=== PATIENT | female | born 1960 | race Caucasian/White ===

== ENCOUNTER → 2019-02-25 10:17 | Outpatient (CLI) | payer BC, SELFPAY ==
[2013-08-06 08:47] VITALS: BMI 47.0
[2019-02-25 10:41] LABS: Hemoglobin 9.2 g/dL (12.0-15.0); Mean Corp Hgb Conc 28.8 g/dL (32-36); Mean Corpuscular Hgb 26.1 pg (27.0-32.0); Mean Corpuscular Volume 90.7 fL (81-99); Mean Platelet Vol. 9.4 fl (6.2-12.0); Platelet Count 519 K/mm3 (150-450); RBC Distribution Width CV 17.7 % (11.6-14.6); RBC Distribution Width SD 56.1 fl (35.1-43.9); Red Blood Count 3.53 M/mm3 (4.2-5.4); White Blood Count 5.5 K/mm3 (4.4-11.0)
[2019-02-25 11:16] LABS: Iron 21 ug/dL (50-170)
== END ==
LOC: LAB.FUTURE 10:21 → LAB 10:24
PROVIDERS: Family Provider Preventive Medicine Occupational Medicine; PCP Preventive Medicine Occupational Medicine; Referring Provider Preventive Medicine Occupational Medicine; Visit Provider Preventive Medicine Occupational Medicine
DX: D50.9 Iron deficiency anemia, unspecified (principal)
CPT/HCPCS: 36415; 83540; 85027

== ENCOUNTER → 2019-04-10 15:37 | Outpatient (CLI) | payer BC, SELFPAY ==
[2019-04-07 14:28] VITALS: BMI 37.5
--- NOTE | 2019-04-10 15:37 | CT_ITS ---
STUDY: CT CHEST WITH CONTRAST REASON FOR EXAM: Female, 59 years old. STAGING RECTAL CA RADIATION DOSAGE (If Supplied By Facility): CTDIvol = ( 21.57 ) mGy, DLP = ( 1467.20 ) mGycm TECHNIQUE: Transaxial imaging was performed following intravenous administration of IV 100mL Isovue-300. Multiplanar coronal and sagittal images were reformatted. Individualized dose optimization techniques were used for this CT. COMPARISON: None. FINDINGS: There are multiple irregular, spiculated noncalcified nodules and multiple pulmonary lobes. For instance, in the right upper lobe, there is a 2.0 x 2.5 cm nodule on image 29. In the medial right lower lobe, there is a 3.2 x 3.1 cm nodule/mass on image 71. There is also a 1.6 x 2.0 cm nodule in the lateral left lower lobe on image 72. No pleural effusion or mass. Normal heart and pericardium. There are calcifications of the coronary arteries. Mildly enlarged mediastinal lymph nodes including station 4 and Station 7 measuring up to 1.2 cm in short axis (station 7). Right hilar adenopathy on image 51 measures 1.3 x 1.5 cm. There are mildly enlarged lymph nodes of the left axilla with rounded morphology in short axis measuring up to 10 mm (image 25). Normal enhanced pulmonary arteries. There is atherosclerotic calcification of the aortic arch with tortuosity and elongation of the aortic arch and descending thoracic aorta. No lytic or sclerotic bone lesion demonstrated. Upper abdomen described on abdomen/pelvis CT report. CT/Chest WITH Contrast IMPRESSION: 1. Multiple pulmonary noncalcified nodules and right hilar/mediastinal adenopathy worrisome for metastasis. No comparison study available. 2. Mildly prominent left axillary lymph nodes measure up to 10 mm in short axis. Electronically Signed: Leighton Fuentes MD ([place]) at 9:20 EST , Service support ,
--- NOTE | 2019-04-10 15:52 | CT_ITS ---
STUDY: CT ABDOMEN WITH CONTRAST REASON FOR EXAM: Female, 59 years old. STAGING RECTAL CA RADIATION DOSAGE (If Supplied By Facility): CTDIvol = ( 21.57 ) mGy, DLP = ( 1467.20 ) mGycm TECHNIQUE: Transaxial images were obtained post I.V. administration of IV 100mL Isovue-300, and with oral contrast. Sagittal and coronal images were reconstructed. Individualized dose optimization techniques were used for this CT. COMPARISON: Prior comparison studies are not available for review at this time. FINDINGS: Lung bases described on chest CT. Hypodense mass of the left hepatic lobe measures 6.0 x 5.6 cm. Normal gallbladder and extrahepatic biliary system. Normal spleen. Normal pancreas. There is a 1.4 cm intermediate density nodule of the left adrenal gland. The right adrenal gland is normal. Normal right kidney. Normal left kidney. Normal visualized stomach. Normal visualized small intestine. Normal visualized colon. The appendix is visualized and appears normal. There is diffuse atherosclerotic calcification of the abdominal aorta, without a demonstrated aneurysm. Normal inferior vena cava. Normal retroperitoneum. Anterior abdominal wall fat-containing hernia with mild induration of the contain fat but no focal fluid collection. There are diffuse degenerative changes of the visualized lumbar spine. Degenerative anterolisthesis of L4-L5 due to facet arthropathy. CT/Abdomen WITH IV Contrast IMPRESSION: 1. Hypodense mass of the left hepatic lobe is NOT compatible with a simple cyst. Additional evaluation with hepatic protocol MRI and/or PET scan suggested. 2. 1.4 cm nodule of the left adrenal gland. No comparison studies are available. Benign (lipid poor adenoma) and malignant/metastatic causes are possible. 3. Periumbilical fat-containing hernia with mild hernia sac inflammation but no focal fluid collection. Electronically Signed: Leighton Fuentes MD ([place]) at 9:50 EST , Service support ,
== END ==
PROVIDERS: PCP Preventive Medicine Occupational Medicine; Referring Provider Internal Medicine Medical Oncology; Visit Provider Internal Medicine Medical Oncology
DX: C20 Malignant neoplasm of rectum (principal)
CPT/HCPCS: 71260; 74160; Q9967

== ENCOUNTER → 2019-04-12 07:46 | Outpatient (CLI) | payer BC, SELFPAY ==
[2019-04-07 14:28] VITALS: BMI 37.5
--- NOTE | 2019-04-12 07:47 | MRI_ITS ---
MRI OF THE RECTUM/PELVIS WITHOUT AND WITH CONTRAST CLINICAL INDICATION: RECTAL CA -- new dx , staging, pelvic pain, no tx or surgery ADDITIONAL CLINICAL HISTORY:? ??None. ENDOSCOPIC ULTRASOUND:? ?None reported. COMPARISON: CT abdomen 04/10/2019, CT chest 04/10/2019 CONTRAST: The quantity and type of administered IV contrast is not reported in the technologist notes on PACS. Correlate with technologist notes within the permanent medical record. MAGNET:? ?? TECHNIQUE: Multisequence multiplanar MRI of the pelvis focused on the rectum, including cone-down imaging in the sagittal, coronal, and axial planes aligned to the rectum. IMAGE QUALITY: Adequate. FINDINGS:? TUMOR LOCATION/CHARACTERISTICS The apical most portion of the lesion lies approximately 9.8 cm above the top of the anorectal angle. The inferior most portion of the lesion lies approximately 3.7 cm above the anorectal angle. Distance of the lowest extent of tumor: From anal verge:? 7.6? ?cm? From top of anal sphincter:? 4.2? ?cm? Tumor at or below puborectalis sling:? ??No. Intersphincteric fat: Preserved Tumor Circumferential extent: The tumor extends from the 1:00 position, clockwise to the 11:00 position. Type: Semi-annular Craniocaudal extent:?The largest bulk of the tumor is centered approximately 5.2 cm above the anorectal angle. The tumor extends along the left rectal sidewall between the 12:00 and 6:00 positions up to a level 9.8 cm above the top of anal rectal angle. The tumor involves the middle 3rd and distal 3rd of the rectum. Mucinous Subtype:? There is no significant visible mucinous content EXTRAMURAL DEPTH OF INVASION /T STAGING TUMORS: Extramural depth of invasion:?0 ?mm. Noted below, there is tumor spiculation extrinsic to the wall in the proximal portion of the tumor. T Stage:? ??T3c There is full-thickness involvement of the rectal wall with muscularis involvement in the lower portion of the tumor between the 9:00 and 11:00 positions, and in the superior portion of the tumor at the 3 to 5:00 position. There is also extension of the tumor into the muscularis in the lower portion of the tumor, between the 4:00 and 6:00 positions. Pyle images are saved to the PACS archive. MESORECTAL FASCIA (MRF) AND EXTRAMURAL DEPTH OF INVASION There is spiculation surrounding the margins of the rectal wall, centered on series 8, image 11. Pyle images saved to the PACS archive. The shortest distance from the margin of spiculation to the mesorectal fascia is 2.4 cm. There is a lobular soft tissue density extending outward from the 9:00 position of the rectum, series 8 image 12, subjacent to the area of rectal wall tumor spiculation. This extends about 15 mm from the muscularis propria into the perirectal fat and may represent invasion of a blood vessel, or a fingerlike projection of tumor. Based on the distance of extension from the rectal wall, displaces the malignancy at T3c. EXTRAMURAL VASCULAR INVASION:? ??None definitively visualized. SUSPICIOUS NODES (irregular border, mixed signal intensity, ? 5?8 mm) :? Mesorectal:? ??Posterior perirectal lymph nodes with suspicious features, measuring 11 mm, 5.7 mm, and 7.4 mm Extramesorectal:? ??None. SWATI node station:? ??None. DISTANT METASTASES:? ??No visualized distal metastases. BONES:? ??No apparent lesions. ADDITIONAL FINDINGS:? ?? Body wall soft tissues exhibit no acute process. Osseous structures exhibit no acute process. There is multilevel lumbar spondylosis contributing to spinal canal and foraminal stenosis at L4-L5, with mild grade 1 spondylolisthesis. Evaluated portions of small bowel are normal. Unremarkable vasculature. MRI/Pelvis W/WO Contrast IMPRESSION: Malignancy associated with the mid and distal thirds of the rectum. Multiple Pyle images are saved to the PACs archive for reference. The component within the distal 3rd of the rectum is larger. It is contiguous with the portion in the middle 3rd of the rectum along the lateral rectal wall. There is a single fingerlike projection of apparent solid tumor projecting from the right lateral wall, proximal portion of the tumor. There is evidence of multifocal extension into the muscularis. There is tumor spiculation associated with the proximal portion of the tumor. MRI rectal cancer T stage:? ??T3C (secondary to the presence of tumor spiculation along the margins of the rectum in the superiormost portion of the mass, and a 15 mm long fingerlike projection from the rectal wall). Maximal EMD of invasion:? ?Spiculation extends outward from the wall by approximately 4 mm. Fingerlike projection extends about 15 mm from the rectal wall. 3 suspicious mesorectal lymph nodes. N1 Electronically Signed: Constantino Merino MD at 12:11 EST Tel , Service support ,
== END ==
PROVIDERS: PCP Preventive Medicine Occupational Medicine; Referring Provider Internal Medicine Medical Oncology; Visit Provider Internal Medicine Medical Oncology
DX: C20 Malignant neoplasm of rectum (principal)
CPT/HCPCS: 72197; A9575

== ENCOUNTER → 2019-04-14 15:41 | Outpatient (CLI) | payer BC, SELFPAY ==
[2019-04-07 14:28] VITALS: BMI 37.5
[2019-04-14 14:34] VITALS: BMI 37.3
--- NOTE | 2019-04-14 15:42 | BI_ITS ---
MAMMOGRAPHY - BILATERAL SCREENING REASON FOR EXAM: Female, 59 years old. Routine annual screening examination. PERTINENT HISTORY: Aunt with breast cancer. TECHNIQUE: Digital bilateral breast mary beth (3D mammographic acquisition) in the CC and MLO projections. 2-D mediolateral oblique (MLO) and craniocaudad (CC) views of both breasts were obtained. CAD: Full Field Digital Mammography with Computer Added Detection was performed. COMPARISON: Comparison is made with prior study dated July 29, 2012 and July 24, 2011. FINDINGS: Breast Composition: The breasts are almost entirely fatty. There are no dominant masses or suspicious calcifications. Stable 4.3 mm calcified nodule in the slightly inferior medial anterior aspect of the right breast. No other significant abnormalities are identified. There has been no significant change since the prior study. BI/SCREEN MAMM (CAD) W/MARY BETH BILAT IMPRESSION: Stable bilateral screening mammogram. Yearly follow-up mammogram recommended. (A) ASSESSMENT CATEGORY: BIRADS Category 2: Benign. A letter regarding these results will be sent to the patient by the facility within 30 days. Approximately 10% of breast cancers are not detected by mammography. A normal mammogram should not delay biopsy of a clinically suspicious abnormality. [id number] Electronically Signed: Wander Mai, at 8:35 EST , Service support ,
== END ==
PROVIDERS: PCP Preventive Medicine Occupational Medicine; Referring Provider Internal Medicine Medical Oncology; Visit Provider Internal Medicine Medical Oncology
DX: Z12.31 Encounter for screening mammogram for malignant neoplasm of breast (principal)
CPT/HCPCS: 77063; 77067

== ENCOUNTER 2019-04-17 09:14 | Day surgery (SDC) | payer BC, SELFPAY ==
[2019-04-16 09:20] VITALS: BMI 37.3
[2019-04-17 09:45] VITALS: BP 148/87; PULSE 70; RESP 16; TEMP 37.1; O2SAT 95; BMI 37.2
[2019-04-17] MEDS: Lactated Ringers 1,000 ML 100 ML IV (09:52)
--- NOTE | 2019-04-17 10:10 | HP.PCM_ITS ---
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 Foot Miter Operator Required: No Is patient in pain?: No Allergies codeine Allergy (Verified 04/16/19 09:19) Rash Penicillins Adverse Reaction (Severe, Verified 04/16/19 09:19) Shortness of breath Medications Calcium Carbonate/Vitamin D3 [Calcium 500-Vit D3 400 Tablet] 1 ea PO DAILY 07/29/13 [History Confirmed 04/16/19] Citalopram [Celexa] 20 mg PO DAILY 07/29/13 [History Confirmed 04/16/19] Lovastatin [Mevacor] 40 mg PO QHS 07/29/13 [History Confirmed 04/16/19] Metoprolol Succinate [Toprol Xl] 100 mg PO DAILY 07/29/13 [History Confirmed 04/16/19] Multivitamins,Ther W-Minerals [Multivitamin With Minerals (BKC)] 1 tab PO DAILY 07/29/13 [History Confirmed 04/16/19] Ibuprofen [Motrin] 600 mg PO Q6H PRN PRN #30 tab 08/06/13 [Rx Confirmed 04/16/19] Ferrous Fumarate [Ferrocite] 324 mg PO BID 04/07/19 [History Confirmed 04/16/19] Lisinopril/Hydrochlorothiazide [Lisinopril-Hctz 20-12.5 mg Tab] 1 ea PO DAILY 04/07/19 [History Confirmed 04/16/19] PFSH Medical History Depression (Acute) Essential hypertension (Acute) Hyperlipidemia (Acute) Iron deficiency anemia (Acute) RONDA on CPAP (Acute) Rectal bleeding (Acute) Rectal cancer (Acute) Skin cancer (Acute) Tachycardia (Acute) Vertigo (Acute) Surgical History History of colonoscopy (Acute) Hx of cholecystectomy (Acute) Family History Father Myocardial infarction Mother West Nile encephalitis Sister Myocardial infarction Brother Diabetes Hypertension Social History (Updated 04/16/19 @ 09:[address] Ezequiel Romero MD) Smoking Status: Light Smoker (<10/day) alcohol intake: never HPI HPI HPI: AMINATA NEWSOME, is a 59 F who presents to the office today for HPI HPI HPI: AMINATA NEWSOME, is a 59 F who presents to the office today for port placement. The patient has rectal cancer with lung lesions. She is having neoadjuvant chemo and radiation. She needs port placement for vascular access. ROS General General: Yes weight change, fatigue and colon cancer Cardio Cardiovascular: Yes high blood pressure; no murmur, pacemaker, heart disease, atrial fibrillation, heart attack, heart stent, palpitations, shortness of breat with exertion or chest pain Psych Psychiatric: No depression or anxiety Resp Respiratory: Yes shortness of breath, Yes sleep apnea, No cough, No COPD, No asthma, No emphysema, No wheezing Gastro Gastrointestinal: No abdominal pain, No nausea or vomiting, Yes diarrhea, No constipation, Yes blood in stool, No acid reflux, No hemorrhoids, No ulcers, No gallbladder problem, Yes black,tarry stools Ck Hematologic: No blood thinners Exam Const General: cooperative Orientation: alert, oriented x3 Resp Effort & Inspection: normal respiratory effort Auscultation: clear to auscultation bilaterally Cardio Rate: regular rate Rhythm: regular rhythm Heart Sounds: no murmurs GI Inspection: non-distended Palpation: soft, nontender Assessment & Plan Problems 1. Rectal cancer C20 Plan The patient has metastatic rectal cancer and is requiring port placement for chemotherapy. I discussed right chest port placement with her in detail as well as the risks of bleeding, infection, pneumothorax, line infection, DVT. Patient understands the risks and would like to proceed with right chest port placement. Ezequiel Romero MD Pager: [facility] [address] [place] [address], [address] [place] [address] Office:
[2019-04-17] MEDS: Bupiv/Epi 0.5% Mpf 30 ML Vial (10:57)
[2019-04-17 11:08] VITALS: BP 125/65; BP 148/87; PULSE 79; RESP 18; TEMP 37; O2SAT 93
--- NOTE | 2019-04-17 11:10 | RAD_ITS ---
STUDY: X-RAY CHEST REASON FOR EXAM: Female, 59 years old. POST PORT PLACEMENT TECHNIQUE: Single AP portable view of the chest. COMPARISON: Comparison is made with prior examination dated July 29, 2013. FINDINGS: A right-sided portacatheter has been placed. The tip is in the proximal portion of the superior vena cava. There is evidence of a bilateral pulmonary nodules. A dominant nodule is seen in the right upper lobe measuring 2.4 cm x 2.4 cm. There is no demonstrated pleural abnormality. Normal size heart. Normal mediastinum and aashish. Normal visualized pulmonary arteries. Normal visualized aortic arch and descending thoracic aorta. There are diffuse degenerative changes of the visualized thoracic spine. Normal visualized ribs, clavicles, and shoulders. There is no demonstrated abnormality of the visualized soft tissue structures of the upper abdomen. RAD/CXR for Line Placement IMPRESSION: The tip of the right portacatheter is in the proximal portion of the superior vena cava. Electronically Signed: Wander Mai, at 12:23 EST , Service support ,
--- NOTE | 2019-04-17 11:12 | PCM.OPRPT ---
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 Ultrasound was used to evaluate both IJs and the right IJ was selected. Next, using a needle, the right IJ was accessed and a guidewire was passed on into the superior vena cava under fluoroscopy guidance. A small incision was made over the puncture site and the dilator introducer was placed over the guidewire. Next this was capped and the pocket was made for the port. 1% lidocaine with epinephrine was injected in the proposed port site. An incision was made with scalpel. Electrocautery was used to make a pocket under the skin and subcutaneous tissue. Hemostasis was obtained. Next, the catheter was tunneled up to the neck incision site and placed through the introducer. The peel-away introducer was removed and the position of the catheter was confirmed on fluoroscopy. Next, the catheter was trimmed and attached to the port with the locking device. Interrupted 2-0 Vicryl sutures were used to anchor the port to the chest wall and then the port was placed inside the pocket. The pocket was then flushed with saline and the port irrigated with saline. There was good blood return and the port flushed easily. Next, heparin was injected into the port. The skin was closed with subcutaneous interrupted 3-0 Vicryl sutures. A single 3-0 Vicryl sutures placed under the skin at the neck incision site. Steri-Strips were placed as well as op sites. Patient tolerated procedure well, was taken to PACU in stable condition. Chest x-ray will be obtained. Grafts/Implants Used: 8 [place] PowerPort - Admit VTE Documentation VTE Mechan Device Prophylaxis: SCD's
--- NOTE | 2019-04-17 11:13 | DCINST_ITS ---
Discharge Diet: No Restrictions - Pain medication may cause nausea. You should typically eat light foods as you take your pain medication. Discharge Activity: Return to Normal Activity, May Shower - with your bandage in place in 1-2 days after surgery. DO NOT SHOWER WHEN YOUR PORT IS ACCESSED. Call your doctor if your incision/area has: Continuous Slow Oozing, Sudden Increased Bleeding, Increased Pain/ Swelling, Increased Redness Call your doctor if you observe: Fever of 101 or Higher Remove Dressing in (days):: 3 - When you remove the bandage, leave the steri- strips intact until they fall off. Allergies/Adverse Reactions: Allergies codeine Allergy (Verified 04/17/19 09:45) Rash Penicillins Adverse Reaction (Severe, Verified 04/17/19 09:45) Shortness of breath Medications to take at Discharge Citalopram [Celexa] 20 mg PO DAILY 07/29/13 Lovastatin [Mevacor] 40 mg PO QHS 07/29/13 Metoprolol Succinate [Toprol Xl] 100 mg PO DAILY 07/29/13 Ferrous Fumarate [Ferrocite] 324 mg PO BID 04/07/19 Lisinopril/Hydrochlorothiazide [Lisinopril-Hctz 20-12.5 mg Tab] 1 ea PO DAILY 04/07/19 Ascorbic Acid [Vitamin C] 1,000 mg PO DAILY 04/16/19 Primary Care Physician: Brett Dye DO [Primary Care Provider] - Test Results: Test results from this visit will be discussed in further detail at your follow- up appointment, if applicable. Please Follow Up With: Ezequiel Romero MD When: Please call to schedule 2 week follow up appointment. [phone]
[2019-04-17 11:15] VITALS: BP 114/71; BP 148/87; PULSE 73; RESP 18; O2SAT 93
[2019-04-17 11:20] VITALS: BP 125/70; BP 148/87; PULSE 70; RESP 18; O2SAT 92
[2019-04-17 11:26] VITALS: BP 123/68; BP 148/87; PULSE 68; RESP 18; TEMP 36.3; O2SAT 93
[2019-04-17 12:02] VITALS: BP 148/87
== END 2019-04-17 12:13 | disposition home or self-care (01) ==
LOC: SDC 09:15 → AC 09:17
PROVIDERS: PCP Preventive Medicine Occupational Medicine; Visit Provider Surgery
PROC: (CPT 36561; principal; 2019-04-17 10:25)
DX: Z45.2 Encounter for adjustment and management of vascular access device (principal); C20 Malignant neoplasm of rectum; C78.00 Secondary malignant neoplasm of unspecified lung; I10 Essential (primary) hypertension; E78.5 Hyperlipidemia, unspecified; D50.9 Iron deficiency anemia, unspecified; G47.33 Obstructive sleep apnea (adult) (pediatric); F32.9 Major depressive disorder, single episode, unspecified; F41.9 Anxiety disorder, unspecified; F17.200 Nicotine dependence, unspecified, uncomplicated
CPT/HCPCS: 00532; 36561; 71045; 77001; J7120; C1788; J2405

== ENCOUNTER → 2019-04-21 08:53 | Outpatient (CLI) | payer BC, SELFPAY ==
[2019-04-14 14:34] VITALS: BMI 37.3
[2019-04-17 09:45] VITALS: BMI 37.2
[2019-04-21] VITALS (10 sets, daily range): BP systolic 142–198; BP diastolic 74–95; PULSE 82–128; RESP 12–27; TEMP 36.7; O2SAT 94–100; BMI 37.3
--- NOTE | 2019-04-21 | IMM_PTH ---
PATIENT: AMINATA NEWSOME LOC: [place] U#:[id number] AGE/SX: 64/F ROOM: RE04/21/[address]: Dr. Tyron Stokes MD : 1960 BED: DIS: SPEC #: [id number] RECD: 04/22/19 11:31 STATUS: PATTI REQ #: [id number] WILLIAMS: 04/21/19 00:[address]: Tyron Stokes DEPT: IMMUNOHISTOCHEMISTRY RECD BY: Pilar Jaramillo ENTERED: 04/22/19 11:32 SP TYPE: IMMUNO OTHR DR: Dr. Brett Dye DO Tissues: Lung, NOS Procedures: RCC (add) MSH2 (add) MLH-1 (add) MSH6 (add) Anti-PMS2 (add) NAPSIN A (add) CK20 (add) CK5-6 (add) CK7 (add) CK8 (add) JEAN-2 (add) HEP PAR (add) HER2 CARYL (add) KI-67 (add) MAMM (add) P53 (add) OH (add) TTF1 (add) GATA3 (add) P40 (add) ER (initial) PHYSICIAN & INSTITUTION [place] [id number] SPECIMEN INFORMATION: Tissue Source: Right upper lung, CT-guided biopsy Clinical Info: Right upper lung mass Specimen Number: [id number] CPT code: 49186, 24383 x20 METHODOLOGY: Deparaffinized sections of prefer/formalin-fixed tissue or PAP/DQ stained slides are incubated with monoclonal/polyclonal antibodies/oligonucleotide probes. Localization is made via biotin free immunoperoxidase method. Appropriate controls are performed and reacted as expected. Results on target cell population are indicated in the following table: RESULTS: ANTIBODY / CLONE RESULT ER (6F11) negative OH (1E2) negative Her-2neu (CB11) negative Mammaglobin (31A5) negative GATA3 (L50-823) negative CK7 (OV-TL12/30) negative CK8 (03lllsI27) positive CK20 (KS20.8) positive TTF-1 (8G7G3/1) negative Napsin A (Rabbit Polyclonal) positive HepPar (OCh1E5) negative RCC (PN-15) negative CK5-6 (D5 & 1684) negative P40 (BC28) negative These tests were developed and their performance characteristics determined by [facility]. They may not have been cleared or approved by the U.S. Food and Drug Administration. The FDA has determined that such clearance or approval is not necessary. The above immunohistochemical/dualISH markers are ordered and reviewed by the Pathologist. INTERPRETATION: Right upper lung, CT-guided biopsy: Metastatic adenocarcinoma consistent with colonic/rectal primary. SJ:ernie 04/23/19 Case has been reviewed in consultation with Dr. Lara who concurs with the above diagnosis. IDC:AM ADDENDUM ADDENDUM ADDENDUM ADDENDUM ADDENDUM ADDENDUM ADDENDUM ADDENDUM ADDENDUM ADDENDUM ADDENDUM ADDENDUM ADDENDUM ADDENDUM ADDENDUM ADDENDUM ADDENDUM 05/02/2019 12:27 ADDENDUM 05/02/2019 12:27 ADDENDUM 05/02/2019 12:27 ADDENDUM 05/02/2019 12:27 ADDENDUM 05/02/2019 12:27 ANTIBODY / CLONE RESULT Ki-67 (30-9) positive, high P53 (DO-7) negative JEAN-2 (SP21) positive MLH-1 (M1) positive MSH2 (25D12) positive MSH6 (44) positive PMS2 (JCM4401) positive The above immunohistochemical/dualISH markers are ordered by Dr. Stokes and reviewed by the pathologist. Result of Microsatellite Instability Study: Negative (no loss of mismatch protein; no microsatellite instability detected). SJ:ernie 05/02/19
--- NOTE | 2019-04-21 | LUNG_PTH ---
PATIENT: AMINATA NEWSOME LOC: ID U#:[id number] AGE/SX: 64/F ROOM: RE04/21/[address]: Dr. Tyron Stokes MD : 1960 BED: DIS: SPEC #: [id number] RECD: 04/21/19 10:30 STATUS: PATTI REAravind #: [id number] WILLIAMS: 04/21/19 00:[address]: Tyron Stokes DEPT: SURGICAL PATHOLOGY RECD BY: Jose J Lopez ENTERED: 04/21/19 12:43 SP TYPE: LUNG BX OTHR DR: Dr. Brett Dye DO Tissues: Lung, NOS Procedures: Special Stain Group II Surgery Specimen Level IV Imprint (control) HEADER OPERATION: CT-guided right lung biopsy PRE-OP DIAGNOSIS: Right upper lung mass TISSUE SUBMITTED: Right upper lung, CT-guided biopsy 20 gauge x3 MICROSCOPIC DIAGNOSIS Right upper lung mass, CT-guided core biopsy: Metastatic adenocarcinoma, consistent with colonic/rectal primary. See comment. KAYLA:ernie 04/22/19 COMMENT The specimen is evaluated at the time of biopsy by Dr. Werner. Immediate Evaluation = Positive for malignant cells. Immunohistochemistry ([id number]) supports the above diagnosis. Correlation with clinical, radiologic findings and appropriate follow up are necessary. As per patient's EMR, the patient has history of rectal carcinoma. Molecular studies on the tumor can be performed, if clinically indicated, please notify the laboratory, if they are needed. Case has been reviewed in consultation with Dr. Lara who concurs with the above diagnosis. IDC:AM MICROSCOPIC DESCRIPTION Slides are reviewed. GROSS DESCRIPTION Received in fixative is one container labeled with the patient's name and designated right upper lobe lung mass, CT-guided core biopsy. The specimen consists of multiple irregular fragments of kahn soft tissue that in aggregate measure 0.5 x 0.1 x 0.1 cm. The specimen is totally submitted in one cassette. One touch imprint is prepared at the time of core biopsy. / KAYLA:ernie 04/21/19 TC:0 CPT: 50613, 58752 ADDENDUM ADDENDUM ADDENDUM ADDENDUM ADDENDUM ADDENDUM ADDENDUM ADDENDUM ADDENDUM ADDENDUM ADDENDUM 05/22/2019 12:20 ADDENDUM 05/22/2019 12:20 ADDENDUM 05/22/2019 12:20 ADDENDUM 05/22/2019 12:20 ADDENDUM 05/22/2019 12:20 [facility] NGS SEQUENCING REPORT FROM [employer] RESULT SUMMARY: Abnormal PERTINENT NEGATIVE RESULTS: The following genes are negative for clinically relevant mutations. Mutational hotspots and surrounding exonic regions were interrogated for DNA level point mutations and indels (fusions not assayed). BRAF (exons 11, 15) inclusive of V600 Please see complete report in e-chart or EMR for further details
--- NOTE | 2019-04-21 08:54 | CT_ITS ---
PROCEDURE: CT GUIDED CORE NEEDLE BIOPSY OF A right upper lobe LUNG LESION INDICATION: Female, 59 years old. Right upper lung mass biopsy. Newly diagnosed rectal cancer with liver and lung mets. PHYSICIAN: Dr. Sergei Herring CONSENT: Written informed consent was obtained having explained the risks, benefits and alternatives in detail with the patient who accepted the risks and agreed to proceed. Laboratory review and clinical assessment was performed. CONSCIOUS SEDATION PROTOCOL: The Drugs used were: 2 mg Versed, IV., and 50 mcg Fentanyl, IV. The sedation time was: 22 minutes. Conscious sedation was started at 9:58 AM and terminated at 10:20 AM. The conscious sedation protocol was independently monitored. RADIATION DOSAGE (If Supplied By Facility): CTDIvol = ( 21 ) mGy, DLP = ( 671.5 for ) mGycm Individualized dose optimization techniques were used for this CT. TECHNIQUE: The patient was placed in the prone position. A noncontrast CT was performed to localize the lesion in the posterior right upper lobe . The skin surface was prepped and draped in a sterile fashion. 1% lidocaine was used for local anesthesia. Using CT guidance, a 20-gauge coaxial biopsy device was advanced to the periphery of the lesion. A total of 3 core specimens were obtained. The specimens were placed in a formalin solution. A post procedure CT demonstrated no adverse sequelae or pneumothorax. The patient tolerated the procedure well without adverse event. A negative biopsy does not exclude malignancy. Further imaging or clinical followup based on patient condition and degree of clinical suspicion for malignancy. Suggest rebiopsy, if biopsy results do not match with clinical scenario. CT/Biopsy/Inj or Needle Placement IMPRESSION: 1. CT directed core needle biopsy of the right upper lobe posterior pulmonary lesion using CT image guidance with image documentation as described. Pathology results are pending. 2. Conscious Sedation protocol utilized with independent monitoring. Electronically Signed: Wander Mai, at 10:50 EST , Service support ,
[2019-04-21 09:16] LABS: Absolute Lymphocyte Count 0.93 X10^3/uL (0.83-4.51); Absolute Neutrophil Count 3.5 X10^3/uL (2.0-7.7); Basophil# 0.05 X10^3/uL; Basophil% 0.9 % (0-1); Eosinophil# 0.36 X10^3/uL; Eosinophils% 6.5 % (0-5); Hematocrit 33.1 % (37-47); Hemoglobin 9.6 g/dL (12.0-15.0); Lymphocyte # 0.93 X10^3/ul (4.0); Lymphocyte % 16.7 % (19-41); Mean Corpuscular Hgb 26.5 pg (27.0-32.0); Mean Corpuscular Volume 91.4 fL (81-99); Mean Platelet Vol. 9.7 fl (6.2-12.0); Monocyte# 0.69 X10^3/uL; Monocyte% 12.4 % (0-10); NRBC Flagged by Analyzer 0 % (0-5); Neutrophil # 3.54 X10^3/uL (2.7-7.7); Neutrophil % 63.3 % (47-70); Platelet Count 466 K/mm3 (150-450); RBC Distribution Width CV 15.1 % (11.6-14.6); RBC Distribution Width SD 50.1 fl (35.1-43.9); Red Blood Count 3.62 M/mm3 (4.2-5.4); White Blood Count 5.6 K/mm3 (4.4-11.0)
[2019-04-21 09:27] LABS: Partial Thromboplast Time 24.9 Seconds (24.1-36.2); Prothrombin Time (Protime)PT. 12.9 SECONDS (11.7-14.9)
[2019-04-21] MEDS: Midazolam 2 MG/2 ML Syringe IV (09:58)
[2019-04-21] MEDS: fentaNYL 100 MCG/2 ML Ampul IV (10:02)
--- NOTE | 2019-04-21 10:30 | RAD_ITS ---
STUDY: X-RAY CHEST REASON FOR EXAM: Female, 59 years old. POST RIGHT LUNG BX TECHNIQUE: AP inspiration and expiration. COMPARISON: None. FINDINGS: This is an immediate post right lung biopsy radiograph. No evidence of pneumothorax. RAD/Chest Insp/Exp 2 View IMPRESSION: No evidence of pneumothorax on the immediate post right lung biopsy radiograph. Electronically Signed: Wander Mai, at 15:21 EST , Service support ,
--- NOTE | 2019-04-21 12:30 | RAD_ITS ---
STUDY: X-RAY CHEST REASON FOR EXAM: Female, 59 years old. 2 HR POST LUNG BX TECHNIQUE: AP inspiration and expiration views. COMPARISON: Comparison is made with prior study done earlier in the day. FINDINGS: There is no evidence of a pneumothorax. Persistent nodular density in the right upper lobe. RAD/Chest Insp/Exp 2 View IMPRESSION: No evidence of pneumothorax on the 2 hour post right lung biopsy radiograph. The patient is asymptomatic. Electronically Signed: Wander Mai, at 13:15 EST , Service support ,
== END ==
PROVIDERS: PCP Preventive Medicine Occupational Medicine; Referring Provider Internal Medicine Medical Oncology; Visit Provider Internal Medicine Medical Oncology
DX: C78.01 Secondary malignant neoplasm of right lung (principal); C78.7 Secondary malignant neoplasm of liver and intrahepatic bile duct; C20 Malignant neoplasm of rectum
CPT/HCPCS: 32405; 36415; 71046; 77012; 85025; 85610; 85730; 88305; 88313; 88341; 88342; 99156; 99157; J7040; A4216

== ENCOUNTER → 2019-06-27 13:20 | Outpatient (CLI) | payer BC, SELFPAY ==
[2019-06-17 09:11] VITALS: BMI 36.8
--- NOTE | 2019-06-27 13:21 | CT_ITS ---
STUDY: CT ABDOMEN AND PELVIS WITH CONTRAST REASON FOR EXAM: Female, 59 years old. ASSESS CHEMO FOR RECTAL CANCER with mets to liver and lung. Prior cholecystectomy and tonsillectomy. HTN-rx controlled. RADIATION DOSAGE (If Supplied By Facility): CTDIvol = ( 20.47 ) mGy, DLP = ( 2103.27 ) mGycm TECHNIQUE: Transaxial images were obtained from the dome of the diaphragm to the symphysis pubis without oral contrast. Oral and amp; IV Readi-CAT and amp; 100mL Isovue-300 was administered. Sagittal and coronal images were reconstructed. Individualized dose optimization techniques were used for this CT. COMPARISON: 04/28/2019 FINDINGS: The visualized lung bases are unremarkable. The visualized portions of the heart are within normal limits. There is a metastatic lesion in the left lobe of the liver measures 5.5 x 4.6 cm has decreased in size since the previous study it measured previously 6.9 x 5.6 cm. There is non-visualization of the gallbladder, which may be secondary to either contraction or a prior cholecystectomy. Normal spleen. Normal pancreas. Normal bilateral adrenal glands. Normal right kidney. Normal left kidney. Normal visualized stomach. Normal small intestine. Normal colon. The appendix is visualized and appears normal. There is diffuse atherosclerotic calcification of the abdominal aorta, without a demonstrated aneurysm. Normal inferior vena cava. Normal retroperitoneum. Normal urinary bladder. There is a rounded lesion in the uterus fundus measuring 6.3 cm most likely represent a fibroid. There is a small umbilical hernia containing fat. There are diffuse degenerative changes of the visualized lumbar spine. CT/Abdomen/Pelvis WITH Contrast IMPRESSION: There is a metastatic lesion in the left lobe of the liver measures 5.5 x 4.6 cm has decreased in size since the previous study it measured previously 6.9 x 5.6 cm. There is a rounded lesion in the uterus fundus measuring 6.3 cm most likely represent a fibroid. Electronically Signed: Carlene Nicole, at 15:22 EDT Tel , Service support ,
--- NOTE | 2019-06-27 13:24 | CT_ITS ---
STUDY: CT CHEST WITH CONTRAST REASON FOR EXAM: Female, 59 years old. ASSESS CHEMO FOR RECTAL CANCER with mets to liver and lung. Prior cholecystectomy and tonsillectomy. HTN-rx controlled. RADIATION DOSAGE (If Supplied By Facility): CTDIvol = ( 20.47 ) mGy, DLP = ( 2103.27 ) mGycm TECHNIQUE: Transaxial imaging was performed following intravenous administration of Oral and amp; IV Readi-CAT and amp; 100mL Isovue-300. Individualized dose optimization techniques were used for this CT. COMPARISON: PET CT scan from 04/28/2019 FINDINGS: Multiple metastatic lesions are noted in the right and left lungs, all these lesions have decreased in size since the previous study largest lesion is in the right lower lobe posterior basal segment measured previously 3.7 x 3.3 cm and now measures 1.9 x 1.7 cm. There is no demonstrated pleural abnormality. Normal heart and pericardium. Normal mediastinum. Normal hilar regions. Normal enhanced pulmonary arteries. Normal aorta arch and descending thoracic aorta. Normal osseous structures. CT/Chest WITH Contrast IMPRESSION: Decreased size of all metastatic lesions in both lungs. The largest lesion is in the right lower lobe posterior basal segment measured previously 3.7 x 3.3 cm and now measures 1.9 x 1.7 cm Electronically Signed: Carlene Nicole, at 15:01 EDT Tel , Service support ,
[2019-06-27] MEDS: 0.9% Saline Lock 10 ML Syringe IV (13:47)
== END ==
PROVIDERS: PCP Preventive Medicine Occupational Medicine; Referring Provider Internal Medicine Medical Oncology; Visit Provider Internal Medicine Medical Oncology
DX: C20 Malignant neoplasm of rectum (principal); C78.7 Secondary malignant neoplasm of liver and intrahepatic bile duct; C78.01 Secondary malignant neoplasm of right lung; C78.02 Secondary malignant neoplasm of left lung
CPT/HCPCS: 71260; 74177; Q9967; A4216

== ENCOUNTER → 2019-09-04 12:45 | Outpatient (CLI) | payer BC, SELFPAY ==
[2019-08-26 08:25] VITALS: BMI 37.1
--- NOTE | 2019-09-04 12:53 | CT_ITS ---
STUDY: CT CHEST WITH CONTRAST REASON FOR EXAM: Female, 59 years old. Rectal cancer, pulmonary and hepatic metastases, on chemotherapy RADIATION DOSAGE (If Supplied By Facility): CTDIvol = ( 19.37 ) mGy, DLP = ( 2092.19 ) mGycm TECHNIQUE: Transaxial imaging was performed following intravenous administration of Oral and amp; IV Readi-CAT and amp; 100mL Isovue-300. Individualized dose optimization techniques were used for this CT. COMPARISON: June 27, 2019 FINDINGS: There are multiple pulmonary lesions in the form off nodular clusters some with central cavitary components. These lesions are not measurable by guidelines criteria to determine treatment response due to them not being solid/spherical in shape. Lesion extent and number and distribution are visually stable. There are no distinct new nodular clusters. Detection of individual small, less than 3-4 mm, nodules is not possible due to intrinsic technical limitations. There are indeterminate mediastinal lymph nodes, not pathologic by CT criteria. Aorta and pulmonary artery are normal. Cardiac chambers are normal in size and shape. There is moderate coronary artery disease. CT/Chest WITH Contrast IMPRESSION: 1. Stable pulmonary metastatic disease. 2. Multiple clusters of small nodular metastases. Electronically Signed: Lang Mohan, at 16:53 EDT Tel , Service support ,
--- NOTE | 2019-09-04 12:53 | CT_ITS ---
STUDY: CT ABDOMEN AND PELVIS WITH CONTRAST REASON FOR EXAM: Female, 59 years old. Rectal cancer, hepatic and pulmonary metastases, on chemotherapy RADIATION DOSAGE (If Supplied By Facility): CTDIvol = ( 19.37 ) mGy, DLP = ( 2092.19 ) mGycm TECHNIQUE: CT images were obtained from the dome of the diaphragm to the symphysis pubis without oral contrast. Oral and amp; IV Readi-CAT and amp; 100mL Isovue-300 was administered. Sagittal and coronal images were reconstructed. Individualized dose optimization techniques were used for this CT. COMPARISON: June 27, 2019, April 10, 2019 FINDINGS: Heterogeneously hypoenhancing segment 2/3 hepatic metastasis measures 4.8 cm, previously 5.2 cm in June and 6.3 cm in March of current year. There are no new hepatic metastasis. Gallbladder is resected. There is no biliary dilation. Spleen, pancreas, adrenals and kidneys are normal. There is no intestinal obstruction. There is no abdominal lymphadenopathy. There is small opening ventral midline abdominal hernia with fat inflammatory change, not containing loops of bowel. The uterus contains a fibroid. There is inflammatory change in the perirectal space, likely post radiation treatment. Evaluation for underlying malignancy status is not possible due to lack of therapeutic cleansing. Osseous structures are intact. CT/Abdomen/Pelvis WITH Contrast IMPRESSION: 1. Progressively decreasing hepatic metastasis, conditional partial treatment response. Electronically Signed: Lang Mohan, at 18:42 EDT Tel , Service support ,
[2019-09-04] MEDS: 0.9 % NaCl (Sterile) Posiflush 10 mL IV (13:05)
[2019-09-04] MEDS: 0.9% Saline Lock 10 ML Syringe IV (13:29)
== END ==
PROVIDERS: PCP Preventive Medicine Occupational Medicine; Referring Provider Internal Medicine Medical Oncology; Visit Provider Internal Medicine Medical Oncology
DX: C20 Malignant neoplasm of rectum (principal); C78.00 Secondary malignant neoplasm of unspecified lung
CPT/HCPCS: 71260; 74177; Q9967; A4216

== ENCOUNTER 2019-10-04 08:34 | Emergency (ER) | payer BC, SELFPAY ==
[2019-09-30 08:56] VITALS: BMI 37.8
[2019-10-04 08:35] VITALS: BP 187/106; PULSE 88; RESP 16; TEMP 36.6; O2SAT 95; BMI 38.4
--- NOTE | 2019-10-04 08:45 | ED.VIS.GEN ---
History of Present Illness Chief Complaint: Upper Extremity Injury Informant: Patient Onset: Yesterday Current Severity: Moderate Maximum Severity: Severe Narrative: Patient presents secondary to right arm and wrist pain. She slipped and fell in the tub last evening. She denies any other injury. She did not hit her head or lose consciousness. Patient planes of pain throughout the right upper arm as well as the right wrist. She states she had some paresthesias last evening that are resolved currently. She is right-hand dominant. She did take Tylenol approximately an hour ago without improvement of her pain. - Past Medical History (1) High cholesterol Status: Chronic (2) Metastatic adenocarcinoma to liver Status: Chronic (3) Metastatic adenocarcinoma to lung Status: Chronic (4) Rectal cancer Status: Chronic (5) Hypertension Status: Chronic Past Medical History - Allergies and Home Meds Allergies/Adverse Reactions: Allergies codeine Allergy (Verified 10/04/19 08:38) Rash Penicillins Adverse Reaction (Severe, Verified 10/04/19 08:38) Shortness of breath Primary Care Physician: Brett Dye DO [Primary Care Provider] - Prior records reviewed: Yes Smoking Status: Current every day smoker Review of Systems General: Denies: Chills, Fever Eyes: Denies: Visual changes - bilaterally ENT: Denies: Bilateral ear pain Cardiovascular: Denies: Chest pain Respiratory: Denies: Dyspnea, Cough Gastrointestinal: Denies: Abdominal pain Musculoskeletal: Reports: Extremity Pain. Denies: Neck pain, Back pain Neurological: Reports: Parasthesia - Currently resolved. Denies: Weakness Hematologic: Denies: Easy bruising, Easy bleeding Allergy: Denies: Uticaria Physical Exam Vital Signs/Narrative: Vital Signs Temp Pulse Resp BP Pulse Ox 10/04/19 08:35 97.8 F 88 16 187/106 H 95 Inital Vital Signs reviewed: Yes General: Well nourished, Well developed Head: Normocephalic ENT: Moist mucous membranes Neck: Supple Cardiovascular: Regular rate, Regular rhythm Respiratory: No distress, CTA bilaterally Abdomen: Soft, Nontender Extremities: - - No tenderness over the right clavicle. Diffuse tenderness throughout the right humerus region. No obvious deformity. No tenderness at the elbow or proximal forearm. Mild tenderness around the right wrist. Decreased range of motion secondary to pain. She does have ability to wiggle fingers and has normal sensation and cap refill there. Skin: Normal color Neurological: Alert, Oriented x3 Psychological: Normal affect Diagnostic/Tx/Re-eval Impressions Humerus X-Ray 10/04/19 08:53 IMPRESSION: Questionable nondisplaced fracture at the proximal humerus. Electronically Signed: Jeremiahrei Butler DO at 9:12 EDT Tel [phone], Service support , Wrist X-Ray 10/04/19 08:53 IMPRESSION: Normal x-ray examination of the wrist. Electronically Signed: Jeremaih Butler DO at 9:14 EDT Tel [phone], Service support , 10/04/19 08:53 Humerus min 2 Views [RAD] Stat Wrist min 3 Views [RAD] Stat - Medical Decision Making Patient was given oxycodone for pain. X-ray results are discussed with her. There is a questionable fracture of the proximal humerus. She was placed in a sling and will be referred to Dr. Cortez for follow-up. Prescription for Kincaid will be sent to [facility] pharmacy for her. ED Disposition - Plan for ED Patient: Disposition: Home or Assisted Living Diagnosis: Right arm fracture Instructions: ED Fracture Upper Extremity Prescriptions: Hydrocodone Bitart/Apap 5-325 [Kincaid 5MG-325MG] 1 tablet PO Q6H PRN PRN 3 Days #10 tablet PRN Reason: Pain Transmission Status: Sent to [id number] Referrals: Iraj Cortez MD [STAFF PHYSICIAN] - 5-7 Days
[2019-10-04] MEDS: oxyCODONE 5 MG Tablet 10 MG PO (08:48)
--- NOTE | 2019-10-04 08:53 | RAD_ITS ---
STUDY: X-RAY - RIGHT WRIST REASON FOR EXAM: Female, 59 years old. Fell in the bath tub last night TECHNIQUE: Three view(s) of the wrist were obtained. COMPARISON: None. FINDINGS: Normal visualized distal radius and ulna. Normal radiocarpal articulation. Normal distal radioulnar articulation. Normal carpal bones. Normal carpal articulations. Normal carpometacarpal articulation of the thumb. Normal second through fifth carpometacarpal articulations. Normal visualized metacarpal bones. The soft tissue structures are unremarkable. RAD/Wrist min 3 Views IMPRESSION: Normal x-ray examination of the wrist. Electronically Signed: Jeremiah Butler DO at 9:14 EDT Tel [phone], Service support ,
--- NOTE | 2019-10-04 08:53 | RAD_ITS ---
STUDY: X-RAY - RIGHT HUMERUS REASON FOR EXAM: Female, 59 years old. pt. fell in bath tub last night TECHNIQUE: Two view(s) of the humerus. COMPARISON: None. FINDINGS: Questionable nondisplaced fracture at the proximal humerus. There is no demonstrated fracture or osseous destructive process. There is no demonstrated soft tissue abnormality. RAD/Humerus min 2 Views IMPRESSION: Questionable nondisplaced fracture at the proximal humerus. Electronically Signed: Jeremiah Butler DO at 9:12 EDT Tel [phone], Service support ,
--- NOTE | 2019-10-04 09:47 | ED.RN ---
DISCHARGE INSTRUCTIONS GIVEN TO AND REVIEWED WITH PATIENT, PATIENT DENIES QUESTIONS OR CONCERNS AND VOICES UNDERSTANDING OF DISCHARGE INSTRUCTIONS. PT AMBULATES OUT OF ROOM WITHOUT DIFFICULTY.
== END 2019-10-04 09:48 | disposition home or self-care (01) ==
PROVIDERS: Emergency Provider Emergency Medicine; PCP Preventive Medicine Occupational Medicine
DX: S49.91XA Unspecified injury of right shoulder and upper arm, initial encounter (principal); W18.2XXA Fall in (into) shower or empty bathtub, initial encounter; Y93.9 Activity, unspecified; Y92.9 Unspecified place or not applicable; I10 Essential (primary) hypertension; E78.00 Pure hypercholesterolemia, unspecified; F17.200 Nicotine dependence, unspecified, uncomplicated; Z79.899 Other long term (current) drug therapy
CPT/HCPCS: 73060; 73110; 99283

== ENCOUNTER → 2019-10-16 | Outpatient (CLI) | payer BC, SELFPAY ==
[2019-10-14 09:10] VITALS: BMI 37.3
[2019-10-16 10:33] LABS: 24 Hour Urine Protein 247.6 mg/24HR (<150 MG/24HR); 24HR. UA Prot. Total Volume 975 mL; Urine Protein (24 Hour) 25.4 mg/dL (<11.9)
== END | disposition home or self-care (01) ==
LOC: LABSPEC 10:02
PROVIDERS: PCP Preventive Medicine Occupational Medicine; Visit Provider Nurse Practitioner Family
DX: R80.9 Proteinuria, unspecified (principal)
CPT/HCPCS: 81050; 84156

== ENCOUNTER → 2019-11-11 07:48 | Outpatient (CLI) | payer BC, SELFPAY ==
[2019-11-04 08:16] VITALS: BMI 37.9
--- NOTE | 2019-11-11 07:49 | CT_ITS ---
STUDY: CT ABDOMEN AND PELVIS WITHOUT CONTRAST REASON FOR EXAM: Female, 59 years old. RECTAL CA with mets to liver and lungs. Current chemo but no surgery. Diagnosed Feb 2019 RADIATION DOSAGE (If Supplied By Facility): CTDIvol = ( 19.34 ) mGy, DLP = ( 2092.19 ) mGycm TECHNIQUE: Transaxial images were obtained from the dome of the diaphragm to the symphysis pubis without oral contrast, and without intravenous contrast. Sagittal and coronal images were reconstructed. Individualized dose optimization techniques were used for this CT. COMPARISON: Comparison is made with prior study dated 09/04/2019. FINDINGS: There is a 1.5 cm x 1.3 cm inhomogeneous pleural-based nodule in the left lower lobe. This has increased slightly in size as compared to prior study. The visualized portions of the heart are within normal limits. There is a 4.3 cm x 3.4 cm hypodense solid mass in the caudate lobe of the liver. This has decreased slightly in size as compared to prior study. The patient is status post cholecystectomy. Normal spleen. Normal pancreas. Normal bilateral adrenal glands. Normal right kidney. Normal left kidney. Normal visualized stomach. Normal small intestine. There are scattered colonic diverticula consistent with diverticulosis. Stable circumferential wall thickening of the rectum with mild increased markings in the surrounding fat most likely post radiation treatment. The appendix is visualized and appears normal. There is diffuse atherosclerotic calcification of the abdominal aorta, without a demonstrated aneurysm. Normal inferior vena cava. Normal retroperitoneum. Normal urinary bladder. There is a 1.8 cm cyst in the left ovary. There is a small umbilical hernia containing fat. There are mild degenerative changes of the visualized lumbar spine. Minimal anterior listhesis of L4 on L5. CT/Abdomen/Pelvis W IV Cont ONLY IMPRESSION: Since prior study, the hypodense mass in the caudate lobe of the liver as decreased slightly in size. The remainder of the examination is unchanged. 1.8 cm cyst in the left ovary. Electronically Signed: Wander Mai, at 10:02 EDT , Service support ,
--- NOTE | 2019-11-11 07:49 | CT_ITS ---
STUDY: CT CHEST WITH CONTRAST REASON FOR EXAM: Female, 59 years old. RECTAL CA with mets to liver and lungs. Current chemo but no surgery. Diagnosed Feb 2019 RADIATION DOSAGE (If Supplied By Facility): CTDIvol = ( 19.34 ) mGy, DLP = ( 2092.19 ) mGycm TECHNIQUE: Transaxial imaging was performed following intravenous administration of IV 100mL Isovue-370. Multiplanar coronal and sagittal images were reformatted. Individualized dose optimization techniques were used for this CT. COMPARISON: Comparison is made with prior examination dated 09/04/2019. FINDINGS: A right-sided portacatheter is seen with the tip in the superior vena cava. There is a 1.2 cm lymph node in the left axillary region. There now is evidence of a 2.6 x 2.7 cm spiculated nodule in the posterior aspect of the right lung apex. Previously, there was a focal area of scarring at that site. Stable focal area of scarring is seen in the posterior lateral aspect of the right lower lobe. The previously seen heterogeneous nodule in the peripheral lateral aspect of the left lower lobe has increased in size. It presently measures 1.5 cm x 1.5 cm. Stable 1 cm slightly irregular nodule in the medial pleural-based region of the right lower lobe as seen on axial image #73. There is no demonstrated pleural abnormality. There are calcifications of the coronary arteries. There are multiple small lymph nodes within the mediastinum, which are normal in size and morphology most compatible with reactive lymph hyperplasia. Normal hilar regions. Normal enhanced pulmonary arteries. Normal aorta arch and descending thoracic aorta. There are multi-level degenerative changes of the thoracic spine. There is no demonstrated abnormality of the visualized upper abdomen. CT/Chest WITH Contrast IMPRESSION: Increased size of the right upper lobe nodule presently measuring 2.6 times by 2.7 cm. Increased size of a 1.5 cm x 1.5 cm nodule in the lateral pleural-based region of the left lower lobe. The remainder of the examination is unchanged. Electronically Signed: Wander Mai, at 10:44 EDT , Service support ,
[2019-11-11] MEDS: 0.9% Saline Lock 10 ML Syringe IV (08:30)
== END ==
PROVIDERS: PCP Preventive Medicine Occupational Medicine; Referring Provider Nurse Practitioner Family; Visit Provider Nurse Practitioner Family
DX: C20 Malignant neoplasm of rectum (principal); C78.7 Secondary malignant neoplasm of liver and intrahepatic bile duct; C78.00 Secondary malignant neoplasm of unspecified lung
CPT/HCPCS: 71260; 74177; Q9967; A4216

== ENCOUNTER → 2020-02-03 14:48 | Outpatient (CLI) | payer BC, SELFPAY ==
[2020-01-27 08:32] VITALS: BMI 37.6
--- NOTE | 2020-02-03 14:49 | CT_ITS ---
HISTORY: ASSESS RESPONSE TO CHEMO. rectal with liver and lung mets/CHEMO TECHNIQUE: CT images of the chest were obtained with 100mL Isovue-300 IV contrast. Number of images including paperwork: [id number]. A radiation dose optimization technique was used for this scan. COMPARISON: 11/11/2019 FINDINGS: VASCULATURE: Vascular tortuosity. HEART/PERICARDIUM: Normal heart size. Coronary calcification. MEDIASTINUM: Unremarkable. ADENOPATHY: No pathologic appearing adenopathy. THYROID: Unremarkable visualized portions. LUNG PARENCHYMA: Spiculated nodule in the right upper lobe measuring 0.8 x 2.0 cm, previously 2.9 x 3 cm. Nodular density in the left lower lobe measuring 0.7 cm, previously 1.7 cm. Opacity posterior to the right mainstem bronchus and small opacities in the lower lobes are minimally changed. PLEURAL SPACES: Unremarkable. UPPER ABDOMEN: Unremarkable. OSSEOUS AND SOFT TISSUE STRUCTURES: No acute skeletal findings. Healing right proximal humerus fracture. DEVICES: Right chest port with catheter tip near the cavoatrial junction. CT/Chest WITH Contrast IMPRESSION: 1. Decrease in right upper lobe mass. 2. Decrease in left lower lobe lung nodule. 3. Right lower lobe infiltrates appear similar. Individualized dose optimization techniques were used for this CT. at 0522 Reported and signed by: Kimberley Powell MD Electronically Signed: Kimberley Powell MD at 5:22 EST Tel , Service support ,
--- NOTE | 2020-02-03 15:10 | CT_ITS ---
HISTORY: ASSESS RESPONSE TO CHEMO.rectal with liver and lung mets/CHEMO ADDITIONAL HISTORY: None provided. EXAMINATION/TECHNIQUE: CT Abdomen And Pelvis W/ Contrast Injection CONTRAST: 100 mL Isovue-300 IV contrast. Enteric contrast was given. A radiation dose optimization technique was used for this scan. Number of images including paperwork: 444 COMPARISON: 11/11/2019, 09/04/2019 FINDINGS: LOWER THORAX: Refer to CT chest report. LIVER: 4 x 4 cm left lobe liver lesion, unchanged. GALLBLADDER: Cholecystectomy. BILE DUCTS: No significant biliary dilatation. SPLEEN: Unremarkable. PANCREAS: Unremarkable. ADRENAL GLANDS: Unremarkable. KIDNEYS/URETERS: Unremarkable. BOWEL: No bowel obstruction. Rectal wall thickening is unchanged to mildly increased. No localized inflammation. Moderate amount of colonic stool. APPENDIX: No evidence of appendicitis. FREE FLUID: No significant free fluid. FREE AIR: None. LYMPH NODES: No pathologic appearing adenopathy. PERITONEUM, RETROPERITONEUM AND MESENTERY: Otherwise unremarkable. VASCULATURE: Unremarkable as imaged. PELVIS: Unremarkable bladder. ABDOMINAL WALL: Small fat-containing umbilical hernia appears similar. OSSEOUS AND SOFT TISSUE STRUCTURES: No acute skeletal findings. Degenerative changes. CT/Abdomen/Pelvis WITH Contrast IMPRESSION: 1. No gross change in hepatic mass compatible with metastasis. 2. Mild apparent decrease in rectal wall thickening. 3. Additional findings above. Individualized dose optimization techniques were used for this CT. at 0502 Reported and signed by: Kimberley Powell MD Electronically Signed: Kimberley Powell MD at 5:01 EST Tel , Service support ,
[2020-02-03] MEDS: 0.9% Saline Lock 10 ML Syringe IV (15:15)
== END ==
PROVIDERS: PCP Preventive Medicine Occupational Medicine; Referring Provider Internal Medicine Medical Oncology; Visit Provider Internal Medicine Medical Oncology
DX: C20 Malignant neoplasm of rectum (principal); C78.7 Secondary malignant neoplasm of liver and intrahepatic bile duct; C78.00 Secondary malignant neoplasm of unspecified lung
CPT/HCPCS: 71260; 74177; Q9967; A4216

== ENCOUNTER 2020-04-30 07:43 | Day surgery (SDC) | payer BC, SELFPAY ==
[2020-04-12 08:00] VITALS: BMI 36.1
[2020-04-20 08:35] VITALS: BMI 35.7
--- NOTE | 2020-04-30 06:09 | HP_ITS ---
Intake Vital Signs 04/12/20 Height 5 ft 2 in 04/12/20 Weight: 197 lb 4 oz 04/12/20 BP 129/83 H 04/12/20 Blood Pressure Location Rt brachial 04/12/20 Position Sitting 04/12/20 Respiration 18 04/12/20 Pulse 115 H 04/12/20 Pulse Source NIBP 04/12/20 Temp 97.2 F L 04/12/20 Temp Source Temporal 04/12/20 Pulse Oximetry (%) 95 04/12/20 Oxygen Delivery Method room air Intake Visit Reasons: RECTAL BLEEDING, HX RECTAL CANCER Chief Complaint: rectal bleeding, hx rectal cancer Event Services Manager Required: No Is patient in pain?: No Allergies codeine Allergy (Verified 04/12/20 08:01) Rash Penicillins Adverse Reaction (Severe, Verified 04/12/20 08:01) Shortness of breath Medications Citalopram [Celexa] 20 mg PO DAILY 07/29/13 [History Confirmed 04/12/20] Lovastatin [Mevacor] 40 mg PO QHS 07/29/13 [History Confirmed 04/12/20] Metoprolol Succinate [Toprol Xl] 100 mg PO DAILY 07/29/13 [History Confirmed 04/12/20] Lidocaine/Prilocaine [Lidocaine-Prilocaine Cream] 1 applicatio TP DAILY PRN PRN 30 Days #1 tube 05/05/19 [Rx Confirmed 04/12/20] Ondansetron [Ondansetron Odt] 8 mg PO Q8H PRN PRN 10 Days #30 tab.rapdis 05/05/19 [Rx Confirmed 04/12/20] Amlodipine [Norvasc] 5 mg PO QHS 07/22/19 [History Confirmed 04/12/20] Acetaminophen [Tylenol Extra Strength] 500 mg PO PRN PRN 01/13/20 [History Confirmed 04/12/20] Is last menstrual period known: No Post menopausal: Yes Patient : No PFSH Medical History Depression (Acute) Essential hypertension (Acute) Hyperlipidemia (Acute) Iron deficiency anemia (Acute) RONDA on CPAP (Acute) Rectal bleeding (Acute) Rectal cancer (Acute) Skin cancer (Acute) Tachycardia (Acute) Vertigo (Acute) Surgical History History of colonoscopy (Acute) Hx of cholecystectomy (Acute) Family History Father Myocardial infarction Mother West Nile encephalitis Sister Myocardial infarction Brother Diabetes Hypertension Social History (Updated 04/12/20 @ 08:[address] Ezequiel Romero MD) Smoking Status: Current every day smoker HPI HPI HPI: AMINATA NEWSOME, is a 60 F who presents to the office today for HPI HPI Surgical H&P: Yes HPI: AMINATA NEWSOME, is a 60 F who presents to the office today for Rectal bleeding. The patient has metastatic rectal cancer and is undergoing chemotherapy. She started having bright red bleeding per rectum few times per day. This is the same type of bleeding she was having when she was first diagnosed with rectal cancer. ROS General General: Yes colon cancer; no weight change, appetite, fatigue, breast cancer or weakness HEENT HEENT: No difficulty swallowing, eye injury, eye surgery, swollen glands or hoarseness Endo Endocrine: No thyroid disease, diabetes mellitus, thyroid cancer, Hair loss, heat intolerance or cold intolerance Musc Musculoskeletal: Yes arthritis; no back problems, rheumatoid arthritis, gout or joint pain Cardio Cardiovascular: Yes high blood pressure; no murmur, pacemaker, heart disease, atrial fibrillation, heart attack, heart stent, palpitations, shortness of breat with exertion or chest pain Psych Psychiatric: No depression, anxiety or hearing voices Resp Respiratory: No shortness of breath, Yes sleep apnea, No cough, No COPD, No asthma, No emphysema, No wheezing Gastro Gastrointestinal: No abdominal pain, No nausea or vomiting, Yes diarrhea, No constipation, Yes blood in stool, No acid reflux, No hemorrhoids, No ulcers, No gallbladder problem, No black,tarry stools Ck Hematologic: No blood thinners, Yes blood disorders, Yes bleeding, No anemia, No blood clots Neuro Neurologic: No weakness Exam Const General: cooperative Orientation: alert, oriented x3 Resp Effort & Inspection: normal respiratory effort Auscultation: clear to auscultation bilaterally Cardio Rate: regular rate Rhythm: regular rhythm Heart Sounds: no murmurs GI Inspection: non-distended Palpation: soft, nontender Assessment & Plan Problems 1. Rectal cancer C20 Plan The patient has metastatic rectal cancer and has recurrence of bleeding. The patient's oncologist would like a flexible sigmoidoscopy to assess the lesion to see if it has grown and to assess if radiation would be helpful. I explained endoscopy in detail to the patient. I explained the risks including but not limited to stroke or heart attack with anesthesia, perforation of the GI tract, bleeding, infection. I explained that any of these could necessitate further emergency surgery. The patient understands and all questions were answered sufficiently. The patient wishes to proceed with procedure. Will plan for flexible sigmoidoscopy with images of the mass to send to oncology. Ezequiel Romero MD Pager: [facility] [address] [place] [address], [address] [place] [phone] Office: Orders Orders: Colonoscopy Today C20 Coding Level of Care Code Off vis,est,level 2 Diagnoses Rectal cancer C20 I have re-examined the patient. There are no clinical changes since date of exam.
[2020-04-30 08:27] VITALS: BP 153/97; PULSE 80; RESP 16; TEMP 36.7; O2SAT 98; BMI 34.7
[2020-04-30] MEDS: Lactated Ringers 1,000 ML 100 ML IV (08:47)
[2020-04-30 09:03] VITALS: BP 110/76; BP 140/81; PULSE 74; RESP 16; TEMP 36.1; O2SAT 97
--- NOTE | 2020-04-30 09:03 | OP.FLEXSIG_ITS ---
Patient Name: Aislinn Goldstein Procedure Date: 04/30/2020 8:48 AM Date of : 1960 Age: 60 Procedure: Flexible Sigmoidoscopy Indications: Anal hemorrhage, Rectal cancer Providers: Ezequiel Romero MD Referring MD: Brett Dye Medicines: Monitored Anesthesia Care Patient Profile: This is a 60 year old female. Refer to note in patient chart for documentation of history and physical. Last Colonoscopy: within the past 3 years. Complications: No immediate complications. Estimated blood loss: Minimal. Procedure: Pre-Anesthesia Assessment: - Prior to the procedure, a History and Physical was performed, and patient medications and allergies were reviewed. The patient's tolerance of previous anesthesia was also reviewed. The risks and benefits of the procedure and the sedation options and risks were discussed with the patient. All questions were answered, and informed consent was obtained. Prior Anticoagulants: The patient has taken no previous anticoagulant or antiplatelet agents. After reviewing the risks and benefits, the patient was deemed in satisfactory condition to undergo the procedure. After obtaining informed consent, the endoscope was passed under direct vision. Throughout the procedure, the patient's blood pressure, pulse, and oxygen saturations were monitored continuously. The colonoscope was introduced through the anus and advanced to the rectum. The flexible sigmoidoscopy was accomplished without difficulty. The patient tolerated the procedure well. The quality of the bowel preparation was good. Scope In: 8:57:11 AM Scope Out: 8:58:21 AM Total Procedure Duration Time 0 hours 1 minute 10 seconds Findings: A partially obstructing large mass was found in the rectum. The mass was circumferential. Oozing was present. Impression: - Malignant partially obstructing tumor in the rectum. - No specimens collected. Recommendation: - Continue present medications. - Discharge patient to home. - Resume previous diet. Procedure Code(s): --- Professional --- 68497, 52, Sigmoidoscopy, flexible; diagnostic, including collection of specimen(s) by brushing or washing, when performed (separate procedure) Diagnosis Code(s): --- Professional --- C20, Malignant neoplasm of rectum K56.690, Other partial intestinal obstruction K62.5, Hemorrhage of anus and rectum CPT copyright 2017 [employer]. All rights reserved. The codes documented in this report are preliminary and upon cis coordinator review may be revised to meet current compliance requirements. Ezequiel Romero MD 04/30/2020 9:03:24 AM This report has been signed electronically. Number of Addenda: 0 Note Initiated On: 04/30/2020 8:48 AM
--- NOTE | 2020-04-30 09:04 | OP.CCLET_ITS ---
04/30/2020 Brett Dye [address] [place] [address] Re : Flexible Sigmoidoscopy procedure for Aislinn Delgadoott Dear Dr. Dye This procedure was performed on Thursday, April 30, 2020. My impressions and recommendations are as follows: Impressions : - Malignant partially obstructing tumor in the rectum. - No specimens collected. Recommendations : - Continue present medications. - Discharge patient to home. - Resume previous diet. My findings are described in the full procedure note, which is enclosed. If I can be of further assistance, please feel free to contact me at Doctor phone number(s): , Work: . Sincerely, Ezequiel Romero MD 04/30/2020 9:03:24 AM This report has been signed electronically.
[2020-04-30 09:05] VITALS: BP 115/75; BP 140/81; PULSE 74; RESP 16; O2SAT 97
[2020-04-30 09:10] VITALS: BP 125/83; BP 140/81; PULSE 72; RESP 16; O2SAT 98
[2020-04-30 09:16] VITALS: BP 123/84; BP 128/80; BP 140/81; PULSE 69; PULSE 71; RESP 16; TEMP 36.1; O2SAT 97
[2020-04-30 09:56] VITALS: BP 140/81
== END 2020-04-30 09:57 | disposition home or self-care (01) ==
LOC: EN 07:43 → AC 07:44
PROVIDERS: PCP Preventive Medicine Occupational Medicine; Referring Provider Preventive Medicine Occupational Medicine; Visit Provider Surgery
PROC: 0DJD8ZZ Inspection of Lower Intestinal Tract, Via Natural or Artificial Opening Endoscopic (ICD-10-PCS; CPT 45330; principal; 2020-04-30 08:55)
DX: C20 Malignant neoplasm of rectum (principal); K56.690 Other partial intestinal obstruction; K62.5 Hemorrhage of anus and rectum; I10 Essential (primary) hypertension; E78.00 Pure hypercholesterolemia, unspecified; D50.9 Iron deficiency anemia, unspecified; F41.9 Anxiety disorder, unspecified; G47.33 Obstructive sleep apnea (adult) (pediatric); F17.200 Nicotine dependence, unspecified, uncomplicated; Z79.899 Other long term (current) drug therapy; Z20.822 Contact with and (suspected) exposure to COVID-19
CPT/HCPCS: 45330; 87426; C9803; J7120; A4216

== ENCOUNTER 2020-06-15 11:06 | Outpatient (RCR) | payer BC, SELFPAY ==
[2020-05-04 10:03] VITALS: BMI 34.9
[2020-06-15 08:55] VITALS: BMI 33.3
== END 2020-07-09 23:59 ==
LOC: NS 11:06
PROVIDERS: PCP Preventive Medicine Occupational Medicine; Visit Provider Internal Medicine Medical Oncology
DX: Z71.3 Dietary counseling and surveillance (principal); R63.4 Abnormal weight loss; C20 Malignant neoplasm of rectum; R19.7 Diarrhea, unspecified
CPT/HCPCS: 97802

== ENCOUNTER → 2020-06-18 12:18 | Outpatient (CLI) | payer BC, SELFPAY ==
[2020-05-04 10:03] VITALS: BMI 34.9
[2020-06-15 08:55] VITALS: BMI 33.3
[2020-06-18 10:00] VITALS: BMI 33.3
--- NOTE | 2020-06-18 12:20 | CT_ITS ---
INDICATION: ASSESS TREATMENT RESPONSE-METASTATIC RECTAL CANCER EXAMINATION: CT Chest Abdomen And Pelvis W/ Contrast Injection TECHNIQUE: Helically acquired images were obtained of the chest, abdomen and pelvis after IV contrast. A radiation dose optimization technique was used for this scan. IV Contrast dosage and agent: 100 cc ISOvue 300 Oral contrast: yes COMPARISON: 02/03/2020. FINDINGS: CHEST VASCULATURE: Vascular tortuosity. HEART/PERICARDIUM: Normal heart size. Coronary calcification. MEDIASTINUM: Unremarkable. ADENOPATHY: No pathologic appearing adenopathy. THYROID: Unremarkable visualized portions. LUNG PARENCHYMA: Grossly unchanged size of spiculated nodule in the right upper lobe measuring 2 x 2.2 cm, previously 1.9 x 2.4 cm. Slight increase in density in infiltrate/opacities in the right lower lobe (image 60, series 8 and image 68, series 8) increased size and density of left lower lobe pulmonary nodule (image 76, series 8). Increase in size of left upper lobe pulmonary nodule measuring 6 mm, previously 4 mm (image 47, series 8). Other scattered opacities are unchanged. PLEURAL SPACES: Unremarkable. OSSEOUS AND SOFT TISSUE STRUCTURES: No acute skeletal findings. Healing right proximal humerus fracture. DEVICES: Right chest port with catheter tip near the cavoatrial junction. ABDOMEN LIVER: 4 x 4 cm left lobe liver lesion, unchanged. GALLBLADDER: Cholecystectomy. BILE DUCTS: No significant biliary dilatation. SPLEEN: Unremarkable. PANCREAS: Unremarkable. ADRENAL GLANDS: Unremarkable. KIDNEYS/URETERS: Unremarkable. BOWEL: No bowel obstruction. There is circumferential rectal wall thickening. APPENDIX: No evidence of appendicitis. FREE FLUID: No significant free fluid. FREE AIR: None. LYMPH NODES: 2.8 cm necrotic left external iliac node (image 76, series 3). Two enlarged mesorectal nodes measuring 1.1 cm and 1 cm, respectively (image 85 and image 83, series 3). PERITONEUM, RETROPERITONEUM AND MESENTERY: Otherwise unremarkable. VASCULATURE: Unremarkable as imaged. PELVIS: Unremarkable bladder. Fibroid uterus. ABDOMINAL WALL: Small fat-containing umbilical hernia. OSSEOUS AND SOFT TISSUE STRUCTURES: No acute skeletal findings. Degenerative changes. CT/CT Chest, Abd, Pel w/Contrast IMPRESSION: Findings concerning for recurrent disease/failed treatment response with mesorectal and left external iliac lymphadenopathy as well as worsening metastatic disease to the lung. Unchanged 4 cm liver metastasis. No new liver lesions. Electronically Signed: Jermaine Sanders MD at 21:50 EDT Tel , Service support ,
[2020-06-18] MEDS: 0.9% Saline Lock 10 ML Syringe IV (12:30)
== END ==
PROVIDERS: PCP Preventive Medicine Occupational Medicine; Referring Provider Internal Medicine Medical Oncology; Visit Provider Internal Medicine Medical Oncology
DX: C20 Malignant neoplasm of rectum (principal); C78.7 Secondary malignant neoplasm of liver and intrahepatic bile duct; C78.00 Secondary malignant neoplasm of unspecified lung
CPT/HCPCS: 71260; 74177; Q9967; A4216

== ENCOUNTER → 2020-07-30 14:14 | Outpatient (CLI) | payer BC, SELFPAY ==
[2020-05-04 10:03] VITALS: BMI 34.9
[2020-07-20 08:35] VITALS: BMI 30.6
--- NOTE | 2020-07-30 14:17 | CT_ITS ---
STUDY: CT ABDOMEN AND PELVIS WITH CONTRAST REASON FOR EXAM: Female, 60 years old. Metastatic rectal cancer, pelvic pain RADIATION DOSAGE (If Supplied By Facility): CTDIvol = ( 16.63 ) mGy, DLP = ( 1242.76 ) mGycm TECHNIQUE: CT images were obtained from the dome of the diaphragm to the symphysis pubis without oral contrast. IV 100mL Isovue-300 was administered. Sagittal and coronal images were reconstructed. Individualized dose optimization techniques were used for this CT. COMPARISON: 18 June 2020. FINDINGS: Right lower lung cavitating cluster of nodules in the medial basal segment of the right lower lobe and superior segment of the right lower lobe are stable. There is a small necrotic nodule in the left lower lobe anterior basal segment. Segment 4A/4B heterogeneous hepatic metastasis is stable at 4.1 cm. Gallbladder is not seen. There is no biliary dilation. Adrenals, kidneys spleen and pancreas are normal. There is no intestinal obstruction. There is umbilical hernia with fat with mild inflammation without bowel. There is a heterogeneous thickened appearance of the rectum likely combination of intrinsic disease and posttreatment change. There are mesorectal lymph nodes up to 9 mm. Inguinal regions are clear. There is no pelvic lymphadenopathy. Osseous structures are intact. Appearance is stable since prior. CT/Abdomen/Pelvis WITH Contrast IMPRESSION: 1. No acute findings. 2. Stable pulmonary metastases. 3. Stable hepatic metastasis. 4. Stable disease/posttreatment change in the rectum and mesorectal lymphadenopathy. Electronically Signed: Lang Mohan MD at 17:17 EDT Tel , Service support ,
[2020-07-30] MEDS: 0.9% Saline Lock 10 ML Syringe IV (14:37)
== END ==
PROVIDERS: PCP Preventive Medicine Occupational Medicine; Referring Provider Internal Medicine Medical Oncology; Visit Provider Internal Medicine Medical Oncology
DX: C20 Malignant neoplasm of rectum (principal); C78.7 Secondary malignant neoplasm of liver and intrahepatic bile duct; R10.2 Pelvic and perineal pain
CPT/HCPCS: 74177; Q9967; A4216

== ENCOUNTER → 2020-11-10 07:43 | Outpatient (CLI) | payer BC, SELFPAY ==
[2020-05-04 10:03] VITALS: BMI 34.9
[2020-09-21 08:28] VITALS: BMI 31.1
--- NOTE | 2020-11-10 07:48 | CT_ITS ---
INDICATION: ASSESS TREATMENT RESPONSE FOR RECTAL CANCER EXAMINATION: CT CHEST, ABDOMEN AND PELVIS WITH CONTRAST - CT Chest Abdomen And Pelvis W/ Contrast Injection TECHNIQUE: Helically acquired images were obtained of the chest, abdomen, and pelvis following IV contrast. CTA protocol with 3D reformats were performed. A radiation dose optimization technique was used for this scan. IV Contrast dosage and agent: Oral contrast: None. COMPARISON: 06/18/2020.. FINDINGS: Right chest port visualizes catheter tip in SVC. CHEST: LUNGS, PLEURA AND LARGE AIRWAYS: Prominent right superior axillary lymph nodes visualized demonstrating increase in size and number in comparison to the prior study, the largest of which is visualized on axial series 2 image 26 measuring 1.4 x 1.2 cm comparison to prior study it had measured 0.8 x 0.6 cm on axial series 2 image 21. Prominent right inferior axillary lymph nodes demonstrates increase in size and number in comparison to the prior study. Visualized on axial series 2 image 47 the largest of which is seen measuring 2.5 x 2.0 x 1.2 cm demonstrating significant increase in size in comparison to the prior study where it had measured 1.5 x 0.8 x 0.3 cm. Prominent left axillary lymph nodes visualized the largest of which is seen on axial series 2 image 20 measuring 2.0 x 1.1 cm demonstrates significant increase in size and number in comparison to the prior study where this was visualized on axial series 2 image 21 of the prior study measuring 1.1 x 0.6 cm. Extensive hilar and mediastinal lymph nodes visualized demonstrating increase in size and number in comparison to the prior study, on axial series 2 image 41.1 x 0.9 cm lower paratracheal lymph nodes demonstrates increase in size in comparison to the prior study where it had measured 0.6 x 0.4 cm. Right perihilar mass visualized on axial series 2 image 49 measures 3.0 x 1.9 x 2.8 cm demonstrating decrease in size in comparison to the prior study where it measured 1.5 x 1.2 x 2.3 cm. 4.2 x 2.5 cm pleural-based mass in the inferomedial right lower lobe demonstrates significant increase in size in comparison to the prior study. A spiculated lesion in the right upper lobe seen on axial series 8 image 25 on coronal series 6 along the medial 68 measuring 2.8 x 2.3 x 2.4 cm demonstrates significant decrease in size in comparison to the prior study. Multiple nodules visualized in all lung lobes bilaterally( more than 19 in number) demonstrates significant increase in size in comparison to the prior study Emphysematous changes visualized in bilateral lung dodd, no evidence of pneumothorax or pleural effusion is seen. THYROID: A 0.4 cm low-attenuation nodule is visualized in the medial upper pole of the right lobe suggestive of a colloid cyst, a 0.3 cm 2 small to characterize low-attenuation nodule is visualized in the lower pole of the right lobe. HEART AND PERICARDIUM: Heart size is normal. No pericardial effusion. VESSELS: Thoracic aorta is not dilated. No aortic dissection. No obvious central pulmonary embolism although this study was not performed with the pulmonary embolism protocol. BONES: No suspicious lytic or blastic abnormality. ABDOMEN/PELVIS: LIVER: Heterogeneous lesion in the inferomedial left lobe of the liver measuring 4.2 SUV 0.0 cm seen on axial series 3 image 27 demonstrates slight decrease in size in comparison to the prior study. GALLBLADDER AND BILIARY TREE: No calcified gallstones. No gallbladder distension or wall edema. No intra- or extrahepatic biliary ductal dilation. PANCREAS: No focal cystic or solid mass. SPLEEN: Normal size without focal cystic or solid mass. ADRENAL GLANDS: No nodules. KIDNEYS AND URETERS: Normal renal size and position. No hydronephrosis. PERITONEUM: No ascites or free air. No other fluid collection. BOWEL: Thickening of the wall of the rectum and distal rectosigmoid is visualized with heterogeneous enhancement and the irregular luminal narrowing visualized, this demonstrates no significant progression in comparison to the prior study. Stranding of the mesorectal fat planes is visualized with scattered lymph nodes visualized most prominent seen on axial series 3 image 89 measuring 0.9 x 0.9 cm demonstrates no significant change in comparison to the prior study where it was visualized on June 18 on axial series 3 image 85 measuring 0.9 x 0.9 cm. LYMPH NODES: Subtle retroperitoneal lymph nodes demonstrate no significant change in comparison to the prior study. Right inguinal lymph node visualized on axial series 3 image 103 measuring 1.0 x 1.0 cm demonstrates increase in size in comparison to the prior study where it had measured 0.7 x 0.6 cm. Left inguinal lymph node visualized on axial series 3 image 94 measuring 1.0 x 1.0 cm demonstrates increase in size in comparison to the prior study where it had measured 0.7 x 0.9 cm. VESSELS: Extensive vascular calcifications visualized but no evidence of aneurysmal dilatation or arterial dissection is seen. URINARY BLADDER: The urinary bladder is decompressed and suboptimally evaluated. REPRODUCTIVE ORGANS: Anteverted uterus with an irregularly ill-defined mass in the fundus measuring approximately 5.0 x 4.9 cm suggestive of a uterine fibroids. Low-attenuation left pelvic 2.5 x 1.6 cm lesion suggestive of a left ovary. ABDOMINAL WALL: A 1.3 cm defect in the anterior abdominal wall in the midline infraumbilical is visualized on axial series 3 image 62 measuring 1.3 x 1.9 cm with herniation of omental fat and stranding seen demonstrates no significant change in comparison to the prior study. Mild stranding of the presacral soft tissues is visualized that demonstrates prominence in comparison to the prior study seen on axial series 3 image 84 in comparison to the prior studies the axial series 3 image 18. BONES: Degenerative bone changes demonstrate no significant change in comparison to the prior study, no evidence of metastatic bone disease. CT/CT Chest, Abd, Pel w/Contrast IMPRESSION: Rectal wall thickening demonstrates no significant progression in comparison to the prior study. Retroperitoneal lymph nodes demonstrate no change in comparison to the prior study. Bilateral inguinal lymph nodes demonstrate increase in size in comparison to the prior study. Metastatic disease visualized in all lung lobes bilaterally (more than 19 in number) demonstrates significant increase in size in comparison to the prior study. Hilar mediastinal lymphadenopathy/masses demonstrates increase in size in comparison to the prior study. Bilateral axillary lymphadenopathy demonstrates significant increase in size in comparison to the prior study. Presacral soft tissue stranding demonstrates prominence in comparison to the prior study. Infraumbilical hernia again visualized. Electronically Signed: Connor Engel MD at 15:28 EDT Tel , Service support ,
[2020-11-10] MEDS: 0.9% Saline Lock 10 ML Syringe IV (08:00)
[2020-11-10 08:01] LABS: CREATININE FINGERSTICK 0.8 mg/dL (0.55-1.02); EGFR FINGERSTICK > 60.0000 mL/min (>60)
== END ==
PROVIDERS: PCP Preventive Medicine Occupational Medicine; Referring Provider Internal Medicine Medical Oncology; Visit Provider Internal Medicine Medical Oncology
DX: C20 Malignant neoplasm of rectum (principal)
CPT/HCPCS: 71260; 74177; Q9967; A4216

== ENCOUNTER → 2021-01-20 08:13 | Outpatient (CLI) | payer BC, SELFPAY ==
[2020-05-04 10:03] VITALS: BMI 34.9
--- NOTE | 2021-01-20 08:29 | CT_ITS ---
STUDY: CT CHEST, ABDOMEN T PELVIS WITH CONTRAST REASON FOR EXAM: Female, 60 years old. MONITORING METASTATIC RECTAL CANCER RADIATION DOSAGE (If Supplied By Facility): CTDIvol = ( 17.71 ) mGy, DLP = ( 1851.39 ) mGycm TECHNIQUE: Transaxial imaging was performed following intravenous administration of IV 100mL Isovue-300. Individualized dose optimization techniques were used for this CT. COMPARISON: Comparison is made with prior study 11/10/2020 FINDINGS: CHEST A right-sided portacatheter is seen with the tip in the superior vena cava. Stable small benign-appearing bilateral axillary lymph nodes. Mild decrease in size of the previously seen mass in the right upper lobe. It presently measures 2.1 cm x 1.4 cm. Stable noncalcified pleural based nodule in the peripheral lateral aspect of the right upper lobe as seen on axial image #39. Stable noncalcified 9 mm nodule in the anterior medial aspect of the left upper lobe. There has been a slight increase in size of the heterogeneous peripheral based nodule in the right lower lobe as compared to prior examination. It presently measures 2.4 cm x 1.5 cm. Essentially stable pleural-based nodule in the lateral aspect of the left lower lobe. Stable 1 cm pleural-based nodule in the right lower lobe. Stable nodular density in the posteromedial segment of the left lower lobe as well as in the posterior right lower lobe adjacent to the pleural surface. Mild decreased size of the right infrahilar nodular density presently measuring 3.6 x 1.6 sinus. There is no demonstrated pleural abnormality. There are calcifications of the coronary arteries. Essentially stable mediastinal and right hilar lymphadenopathy. Normal hilar regions. Normal unenhanced pulmonary arteries. Normal aorta arch and descending thoracic aorta. There are multi-level degenerative changes of the thoracic spine. There is no demonstrated abnormality of the visualized upper abdomen. ABDOMEN Slight increase in size of the heterogeneous nodular density seen in the left lobe of the liver. It measures 3.7 cm x 2.8 cm. The patient is status post cholecystectomy. Normal spleen. Normal pancreas. Normal bilateral adrenal glands. Normal right kidney. Normal left kidney. Normal visualized stomach. Normal small intestine. Stable diffuse circumferential wall thickening of the rectal wall. Stable presacral soft tissue prominence. The appendix is visualized and appears normal. There is diffuse atherosclerotic calcification of the abdominal aorta, without a demonstrated aneurysm. Normal inferior vena cava. There is borderline retroperitoneal lymphadenopathy with enlarged nodes no greater than 10mm in the short axis diameter. There is a small umbilical hernia containing fat. There are diffuse degenerative changes of the visualized lumbar spine. PELVIS Normal urinary bladder. Enlarged fibroid uterus. There is a 2.4 cm cyst in the left ovary. Normal visualized small intestine. Normal visualized colon. There is no pelvic fluid. There is no pelvic lymphadenopathy or mass lesion. Normal visualized pelvic arteries. CT/CT Chest, Abd, Pel w/Contrast IMPRESSION: Metastatic disease within the lungs and mediastinum and right hilar region. Some nodules have decreased in size whereas others have increased in size. Stable findings in the abdomen and pelvis. Electronically Signed: Wander Mai MD at 9:40 EST , Service support ,
[2021-01-20 08:41] LABS: CREATININE FINGERSTICK 0.7 mg/dL (0.55-1.02); EGFR FINGERSTICK > 60.0000 mL/min (>60)
[2021-01-20] MEDS: 0.9% Saline Lock 10 ML Syringe IV (08:53)
== END ==
PROVIDERS: PCP Preventive Medicine Occupational Medicine; Referring Provider Internal Medicine Medical Oncology; Visit Provider Internal Medicine Medical Oncology
DX: C78.02 Secondary malignant neoplasm of left lung (principal); C78.01 Secondary malignant neoplasm of right lung; C78.1 Secondary malignant neoplasm of mediastinum; C78.7 Secondary malignant neoplasm of liver and intrahepatic bile duct; C20 Malignant neoplasm of rectum
CPT/HCPCS: 71260; 74177; Q9967; A4216

== ENCOUNTER 2021-04-28 13:53 | Outpatient (CLI) | payer BC, SELFPAY ==
[2020-05-04 10:03] VITALS: BMI 34.9
--- NOTE | 2021-04-28 13:58 | CT_ITS ---
STUDY: CT CHEST, ABDOMEN T PELVIS WITH CONTRAST REASON FOR EXAM: Female, 61 years old. MONITOR RECTAL CANCER,LIVER METS,LUNG METS-IV ONLY RADIATION DOSAGE (If Supplied By Facility): CTDIvol = ( 18.87 ) mGy, DLP = ( 1526.82 ) mGycm TECHNIQUE: Transaxial imaging was performed following intravenous administration of IV 100mL Isovue-300. Individualized dose optimization techniques were used for this CT. COMPARISON: Comparison is made with prior study dated 01/20/2021. FINDINGS: CHEST A right-sided irvin catheter seen with the tip in the superior vena cava. Stable bilateral axillary lymph nodes. The largest lymph node is in the left axilla and measures 1.45 cm. There is a 2.1 cm x 1.9 cm nodule in the posterior aspect of the right upper lobe. This has increased slightly in size as compared to prior study. There is been a increase in size in the previously seen pleural-based nodule in the right upper lobe. It presently measures 1 cm. Stable pleural-based nodules in the anterior aspect of the left upper lobe. Increased size in the peripheral based nodule in the anterior lateral aspect of the left lower lobe. Increased size of the previously seen right lower lobe pulmonary nodule. There is no demonstrated pleural abnormality. There are calcifications of the coronary arteries. Increased size of the lymphadenopathy in the left infrahilar region. Normal unenhanced pulmonary arteries. There is atherosclerotic calcification of the aortic arch with tortuosity and elongation of the aortic arch and descending thoracic aorta. There are multi-level degenerative changes of the thoracic spine. ABDOMEN Normal liver. The patient is status post cholecystectomy. Normal spleen. Normal pancreas. Normal bilateral adrenal glands. Normal right kidney. Normal left kidney. Normal visualized stomach. Normal small intestine. Postsurgical changes are seen in the pelvis in keeping with prior rectal surgery. The appendix is visualized and appears normal. There is diffuse atherosclerotic calcification of the abdominal aorta, without a demonstrated aneurysm. Normal inferior vena cava. Normal retroperitoneum. There is a small umbilical hernia containing fat. Normal osseous structures. PELVIS Normal urinary bladder. Heterogeneous enlargement of the uterus suggestive of fibroid uterus. Stable 2.4 cm left ovarian cyst. There is no pelvic fluid. There is no pelvic lymphadenopathy or mass lesion. Stable mild presacral soft tissue changes. There is diffuse atherosclerotic calcification of the pelvic arteries. There are diffuse degenerative changes of the visualized lumbar spine. CT/CT Chest, Abd, Pel w/Contrast IMPRESSION: Since prior study, there is an progressive pulmonary metastases with enlargement of the previously seen nodules. Stable appearance of the abdominal examination. Electronically Signed: Wander Mai MD at 14:58 EST ,
[2021-04-28] MEDS: 0.9% Saline Lock 10 ML Syringe IV (14:30)
== END 2021-04-28 23:59 | disposition home or self-care (01) ==
LOC: CT 13:54
PROVIDERS: PCP Preventive Medicine Occupational Medicine; Referring Provider Internal Medicine Medical Oncology; Visit Provider Internal Medicine Medical Oncology
DX: C78.00 Secondary malignant neoplasm of unspecified lung (principal); C78.7 Secondary malignant neoplasm of liver and intrahepatic bile duct; C20 Malignant neoplasm of rectum
CPT/HCPCS: 71260; 74177; Q9967; A4216

== ENCOUNTER → 2021-08-30 | Outpatient (CLI) | payer BC, SELFPAY ==
[2020-05-04 10:03] VITALS: BMI 34.9
--- NOTE | 2021-08-30 14:45 | CT_ITS ---
EXAM: CT CHEST, ABDOMEN AND PELVIS WITH INTRAVENOUS CONTRAST CLINICAL INDICATION: RECTAL CA WITH METS-IV ONLY TECHNIQUE: Helically acquired images were obtained of the chest, abdomen and pelvis with intravenous contrast. This CT exam was performed using one or more of the following dose reduction techniques: automated exposure control, adjustment of the mA and/or kV according to patient size, and/or use of iterative reconstruction technique. This report was created using [employer] report generation technology. CONTRAST: IV 100mL Isovue-300 IV. RADIATION DOSE: CTDIvol = 37 mGy, DLP = 1600.79 mGy-cm. COMPARISON: 04/28/2021 and 06/18/2020. FINDINGS: CHEST: LUNGS AND PLEURAL SPACES: Increased size and number of pulmonary metastases compared with the previous exam. The largest mass in the right upper lobe now measures 2.5 x 2.5 cm transverse dimension. Previously it measured 2.3 x 2.2 cm. Previously noted large mass in the right azygoesophageal recess extending into the mediastinum has increased in size since the previous exam. No pleural effusion or thickening. No pneumothorax. HEART: Unremarkable. Heart size is normal. No pericardial effusion. No significant coronary artery calcifications. MEDIASTINUM: See above. THYROID: Unremarkable. No thyroid lesions. ABDOMEN: LIVER: No change in the probable hemangioma left lobe of the liver. GALLBLADDER AND BILE DUCTS: Cholecystectomy. No intra- or extrahepatic biliary ductal dilation. PANCREAS: Unremarkable. No focal cystic or solid mass. SPLEEN: Unremarkable. Normal size without focal cystic or solid mass. ADRENALS: Unremarkable. No nodules. KIDNEYS AND URETERS: Unremarkable. Normal renal size and position. No hydronephrosis. STOMACH AND BOWEL: No change in the mild rectal wall thickening. No stomach or bowel distention. PELVIS: APPENDIX: No evidence of acute appendicitis. BLADDER: Unremarkable. REPRODUCTIVE: No change leiomyomatous uterus. CHEST, ABDOMEN and PELVIS: INTRAPERITONEAL SPACE: Unremarkable. No ascites or other fluid collection. No free air. 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 SOFT TISSUES: Small fat-containing paraumbilical hernia unchanged. VASCULATURE: Unremarkable. Aorta is non-dilated. No aortic dissection. No obvious central pulmonary embolism although this study was not performed with the pulmonary embolism protocol. LYMPH NODES: Unremarkable. No enlarged lymph nodes. CT/CT Chest, Abd, Pel w/Contrast IMPRESSION: 1. Increased size and number of pulmonary metastases compared with the previous exam. 2. New right ninth rib metastasis with pathologic fracture. 3. No change in the probable hemangioma left lobe of the liver. 4. Cholecystectomy. 5. No change leiomyomatous uterus. 6. No change in the mild rectal wall thickening. Electronically Signed: Alden Santana MD at 4:12 EDT ,
[2021-08-30] MEDS: 0.9% Saline Lock 10 ML Syringe IV (15:12)
== END | disposition home or self-care (01) ==
LOC: CT 14:42
PROVIDERS: PCP Preventive Medicine Occupational Medicine; Visit Provider Internal Medicine Medical Oncology
DX: C78.7 Secondary malignant neoplasm of liver and intrahepatic bile duct (principal); C78.00 Secondary malignant neoplasm of unspecified lung; C20 Malignant neoplasm of rectum
CPT/HCPCS: 71260; 74177; Q9967; A4216

== ENCOUNTER 2021-10-03 16:11 | Inpatient (IN) | payer BC, SELFPAY ==
[2020-05-04 10:03] VITALS: BMI 34.9
[2021-10-03] VITALS (10 sets, daily range): BP systolic 76–114; BP diastolic 58–74; PULSE 75–91; RESP 16–30; TEMP 36.1–36.8; O2SAT 98–99; BMI 28.1; BMI 28.0
--- NOTE | 2021-10-03 16:25 | EKG12_ITS ---
Test Reason : WEAKNES Blood Pressure : / mmHG Vent. Rate : 083 BPM Atrial Rate : 083 BPM P-R Int : 146 ms QRS Dur : 084 ms QT Int : 416 ms P-R-T Axes : 033 039 098 degrees QTc Int : 488 ms Normal sinus rhythm T wave abnormality, consider lateral ischemia Abnormal ECG Confirmed by RAUL ODOM, GABI ([id number]), web editor CLAIRE SNIDER ([id number]) on 10/04/2021 11:42:09 AM Referred By: HARJEET Confirmed By:GABI CARTER MD
--- NOTE | 2021-10-03 16:27 | EX.ED.DYSGE1 ---
HPI History of Present Illness Chief Complaint: Weakness Informant: patient and family Onset/Context/Timing Onset: Today Context: Gradual Onset Timing: Continuous Quality: generalized weakness Maximum Severity: Severe Associated Symptoms Associated Symptoms: pale, short of breath with exertion Narrative Narrative: Patient follow with Dr. Stokes for colon/anal cancer. She had prior chemo and radiation. She had an appointment this AM but was too weak to go. She is pale, has shortness of breath with exertion. Denies fevers. Recent Illness/Hospitalization: Yes [facility] Medical History Depression Essential hypertension Hyperlipidemia Iron deficiency anemia RONDA on CPAP Rectal bleeding Rectal cancer Skin cancer Tachycardia Vertigo Home Medications citalopram 20 mg tablet 20 mg PO DAILY mental health 07/29/13 [History Last Taken 10/03/21] metoprolol succinate 100 mg tablet,extended release 24 hr 100 mg PO DAILY blood pressure 07/29/13 [History Last Taken 10/03/21] ondansetron 8 mg disintegrating tablet 8 mg PO Q8H PRN PRN Nausea 10 days ##30 05/05/19 [Rx Last Taken Unknown] acetaminophen 500 mg tablet 500 mg PO PRN PRN Pain 1-10 Or Fever 01/13/20 [History Last Taken 10/03/21] lisinopril 20 mg tablet 20 mg PO DAILY blood pressure 04/26/20 [History Last Taken 10/03/21] ferrous sulfate 325 mg (65 mg iron) tablet (iron) 325 mg PO DAILY supplement 11/16/20 [History Last Taken 10/03/21] trazodone 50 mg tablet 50 mg PO QHS PRN PRN Sleep 06/28/21 [History Last Taken 10/02/21] hydrocortisone acetate 25 mg rectal suppository (Anusol-HC) 25 mg [place] BID PRN PRN . 10/03/21 [History Last Taken Unknown] potassium chloride 10 mEq capsule,extended release 10 meq PO DAILY supplement 10/03/21 [History Last Taken 10/03/21] Allergy/AdvReac Type Severity Reaction Status Date / Time codeine Allergy Rash Verified 09/20/21 10:38 Penicillins AdvReac Severe Shortness Verified 09/20/21 10:38 of breath Family History Father Myocardial infarction Mother [place] encephalitis Sister Myocardial infarction Brother Diabetes Hypertension Surgical History History of colonoscopy Hx of cholecystectomy Social History Smoking Status: Current every day smoker tobacco type: cigarettes alcohol intake: never ROS ROS ED Constitutional Constitutional ED: Denies chills or fever(s) Eyes Eyes: Denies blurry vision ENT ENT ED: Denies ear pain Cardiovascular Cardiovascular: Denies chest pain Respiratory/Chest Respiratory/Chest: Reports dyspnea; Denies cough Gastrointestinal Gastrointestinal: Reports abdominal pain; Denies constipation or melena Genitourinary Genitourinary ED: Denies dysuria Musculoskeletal Musculoskeletal: Denies arthralgias Integumentary Denies abscess Neurologic Neurologic: Denies headache(s) Psychiatric Psychiatric: Denies anxiety Endocrine Endocrinology: Denies cold intolerance Hematologic/Lymphatic Hematologic/Lymphatic: Denies systems reviewed and no addt'l complaints, except as documented EXAM Physical Exam Const Vital Signs: 10/03/21 16:12 10/03/21 16:15 10/03/21 18:30 Temperature 96.9 F L 97.4 F L Temperature Source Temporal Temporal Pulse Rate 91 84 Respiratory Rate 30 H 25 H Respiratory Effort Short of Breath Blood Pressure 87/68 L 108/65 Blood Pressure Mean 74 79 Pulse Ox 98 98 Oxygen Delivery Method Room Air Room Air 10/03/21 16:30 10/03/21 17:00 10/03/21 17:30 Temperature Temperature Source Pulse Rate 87 86 85 Respiratory Rate 16 17 19 H Respiratory Effort Blood Pressure 76/58 L 82/61 L 95/66 Blood Pressure Mean 64 68 75 Pulse Ox 99 99 98 Oxygen Delivery Method Room Air Room Air Room Air 10/03/21 18:00 10/03/21 18:15 Temperature Temperature Source Pulse Rate 83 85 Respiratory Rate 28 H 20 H Respiratory Effort Blood Pressure 98/61 101/72 Blood Pressure Mean 73 81 Pulse Ox 98 99 Oxygen Delivery Method Room Air Room Air Positive well nourished and well developed Constitutional Narrative: Pale General Appearance ED: well developed and pallor HEENT Reports moist mucous membranes Eyes EOMs intact bilaterally Resp normal respiratory effort and clear to auscultation bilaterally Cardio regular rate and regular rhythm GI normal to inspection, nondistended, normoactive bowel sounds, non-tender and non-distended Neuro oriented x3 Sensorium / Orientation: alert Psych mental status grossly normal Skin General Skin Exam: pallor MDM MDM MDM Narrative Medical decision making narrative: Patient was treated with IV fluids and her blood pressure improved. She was kept on the monitor. EKG showed sinus rhythm with a normal rate. Nonspecific T wave changes. No sign of acute infarction pattern. This was interpreted by me. Work-up and results as below. Creatinine is elevated at 3.21. She received additional fluids. Patient was discussed with the hospitalist to admit. We are concerned about her prognosis given her widely metastatic colon cancer. Will admit at this time and consult Dr. Stokes. Official chest x-ray read is pending. I reviewed it myself. It showed nothing acute but signs of bilateral lung masses and lesions. Impression #1 metastatic colon cancer #2 anemia #3 thrombocytosis #4 acute kidney injury Lab Data Labs: Laboratory Results - last 24 hr 10/03/21 10/03/21 10/03/21 17:00 17:00 17:00 WBC 11.4 H RBC 3.65 L Hgb 8.2 L Hct 27.8 L MCV 76.2 L MCH 22.5 L MCHC 29.5 L RDW Std Deviation 55.6 H RDW Coeff of Ava 20.3 H Plt Count 613 H MPV 10.0 Immature Gran % (Auto) 1.100 H Neut % (Auto) 84.6 H Lymph % (Auto) 6.8 L [place] % (Auto) 6.5 Eos % (Auto) 0.9 Baso % (Auto) 0.1 Absolute Neuts (auto) 9.7 H Absolute Lymphs (auto) 0.77 L Nucleated RBC % 0 Differential Comment SCANNED PT 14.5 INR 1.2 Sodium 132 L Potassium 4.1 Chloride 102 Carbon Dioxide 22.0 Anion Gap 8 BUN 60 H Creatinine 3.21 H Estim Creat Clear Calc 14.37 Est GFR (MDRD) Af Amer 19 L Est GFR (MDRD) Non-Af 16 L BUN/Creatinine Ratio 18.7 Glucose 117 H Lactic Acid Calcium 8.1 L Total Bilirubin 0.30 AST 249 H ALT 458 H Alkaline Phosphatase 139 H Troponin I High Sens 73 H Total Protein 6.9 Albumin 1.8 L Globulin 5.1 H Albumin/Globulin Ratio 0.4 L 10/03/21 17:00 WBC RBC Hgb Hct MCV MCH MCHC RDW Std Deviation RDW Coeff of Ava Plt Count MPV Immature Gran % (Auto) Neut % (Auto) Lymph % (Auto) [place] % (Auto) Eos % (Auto) Baso % (Auto) Absolute Neuts (auto) Absolute Lymphs (auto) Nucleated RBC % Differential Comment PT INR Sodium Potassium Chloride Carbon Dioxide Anion Gap BUN Creatinine Estim Creat Clear Calc Est GFR (MDRD) Af Amer Est GFR (MDRD) Non-Af BUN/Creatinine Ratio Glucose Lactic Acid 2.9 H* Calcium Total Bilirubin AST ALT Alkaline Phosphatase Troponin I High Sens Total Protein Albumin Globulin Albumin/Globulin Ratio Discharge Plan Triage Chief Complaint: Weakness ED Provider: Pepe Aldrich Dx/Rx/DC Orders Prescriptions: No Action ferrous sulfate [iron] 325 mg (65 mg iron) tablet 325 mg PO DAILY trazodone 50 mg tablet 50 mg PO QHS PRN PRN (Reason: Sleep) metoprolol succinate 100 MG tablet extended release 24 hr 100 mg PO DAILY Label Comments: citalopram 20 MG tablet 20 mg PO DAILY ondansetron 8 MG tablet,disintegrating 8 mg PO Q8H PRN PRN (Reason: Nausea) 10 Days Qty: 30 3RF acetaminophen 500 MG tablet 500 mg PO PRN PRN (Reason: Pain 1-10 Or Fever) lisinopril 20 MG tablet 20 mg PO DAILY potassium chloride 10 mEq capsule, extended release 10 meq PO DAILY Label Comments: TAKE 1 CAPSULE BY MOUTH ONCE DAILY WITH FOOD hydrocortisone acetate [Anusol-HC] 25 mg suppository 25 mg [place] BID PRN PRN (Reason: .) Primary Care Provider: Brett Dye Referrals: Brett Dye DO [Primary Care Provider] -
[2021-10-03] MEDS: 0.9% Normal Saline 1,000 ML 1000 ML IV (16:41)
[2021-10-03 17:19] LABS: Absolute Lymphocyte Count 0.77 X10^3/uL (0.83-4.51); Absolute Neutrophil Count 9.7 X10^3/uL (2.0-7.7); Basophil# 0.01 X10^3/uL; Basophil% 0.1 % (0-1); Eosinophils% 0.9 % (0-5); Hematocrit 27.8 % (37-47); Hemoglobin 8.2 g/dL (12.0-15.0); Lymphocyte # 0.77 X10^3/ul (0.83-4.51); Lymphocyte % 6.8 % (19-41); Mean Corp Hgb Conc 29.5 g/dL (32-36); Mean Corpuscular Hgb 22.5 pg (27.0-32.0); Mean Corpuscular Volume 76.2 fL (81-99); Monocyte# 0.74 X10^3/uL; Monocyte% 6.5 % (0-10); NRBC Flagged by Analyzer 0 % (0-5); Neutrophil # 9.66 X10^3/uL (2.7-7.7); Neutrophil % 84.6 % (47-70); POSITIVE MORPHOLOGY YES; Platelet Count 613 K/mm3 (150-450); RBC Distribution Width CV 20.3 % (11.6-14.6); RBC Distribution Width SD 55.6 fl (35.1-43.9); Red Blood Count 3.65 M/mm3 (4.2-5.4); White Blood Count 11.4 K/mm3 (4.4-11.0)
[2021-10-03 17:20] LABS: Differential Indicated SCAN CRITERIA MET
[2021-10-03 17:33] LABS: International Normalized Ratio 1.2; Prothrombin Time (Protime)PT. 14.5 SECONDS (11.7-14.9)
[2021-10-03 17:35] LABS: ALB/GLOB Ratio 0.4 RATIO (0.9-2.4); AST(SGOT) 249 U/L (15-37); Alanine Aminotransfer ALT/SGPT 458 U/L (13-56); Albumin, Serum 1.8 g/dL (3.2-5.0); Alkaline Phosphatase 139 U/L (45-117); Anion Gap 8 (5-15); BUN 60 mg/dL (7-18); BUN/Creat Ratio 18.7 RATIO (10-20); Calcium,Total 8.1 mg/dL (8.5-10.1); Chloride 102 mmol/L (98-107); Creatinine, Serum 3.21 mg/dL (0.55-1.02); EST Glomerular Filtration Rate 16 mL/min (>60); Est Glom Filt Rate - Afr Amer 19 mL/min (>60); Estimated Creatinine Clearance 14.37 ml/min; Globulin 5.1 g/dL (2.2-4.2); Glucose 117 mg/dL (74-106); Potassium 4.1 mmol/L (3.5-5.1); Protein, Total 6.9 g/dL (6.4-8.2); Sodium Level 132 mmol/L (136-145); Troponin-I HS 73 pg/mL (3.0-54.0)
[2021-10-03 17:48] LABS: Differential Comment SCANNED
--- NOTE | 2021-10-03 17:50 | RAD_ITS ---
INDICATION: dyspnea EXAMINATION/TECHNIQUE: X-RAY - XR Chest 1 View COMPARISON: None. FINDINGS: Multiple nodular densities seen in both lungs. Tortuous and calcified thoracic aorta. The heart is mildly enlarged. Right-sided chest port. No pleural effusion or pneumothorax. Degenerative changes of the thoracic spine. RAD/Chest 1 View (Portable) IMPRESSION: Multiple nodular densities seen in both lungs consistent with known pulmonary metastases.. Electronically Signed: Jermaine Sanders MD at 19:55 EDT ,
[2021-10-03] MEDS: 0.9% Normal Saline 1,000 ML 999 ML IV (18:01)
[2021-10-03 18:14] LABS: Lactic Acid 2.9 mmol/L (0.4-1.9)
--- NOTE | 2021-10-03 19:08 | PCM.HP.STD ---
HPI - General General Date of Admission: 10/03/21 HPI Narrative AMINATA NEWSOME, is a 61 F who presents to the hospital with weakness. She was supposed to be starting another round of chemotherapy but was too weak to continue so presented to the ER. She was found to have a renal function of over 3, her baseline is less than 1. She states that she has not been having any diarrhea or emesis however she also states that she has not been eating or drinking very well and that she just does not have much of an appetite. She has been having some abdominal cramping which is chronic for her. She has stage IV metastatic anal/rectal cancer. The cancer is spread to both her liver and her lungs. The chemotherapy has led to reduction in size of the liver metastasis but her lung metastases have grown. [facility] Medical History (Updated 10/03/21 @ 19:[address] Kaiser Gama MD) Depression Essential hypertension Hyperlipidemia Iron deficiency anemia RONDA on CPAP Rectal bleeding Rectal cancer Skin cancer Tachycardia Vertigo Home Medications citalopram 20 mg tablet 20 mg PO DAILY mental health 07/29/13 [History Last Taken 10/03/21] metoprolol succinate 100 mg tablet,extended release 24 hr 100 mg PO DAILY blood pressure 07/29/13 [History Last Taken 10/03/21] ondansetron 8 mg disintegrating tablet 8 mg PO Q8H PRN PRN Nausea 10 days ##30 05/05/19 [Rx Last Taken Unknown] acetaminophen 500 mg tablet 500 mg PO PRN PRN Pain 1-10 Or Fever 01/13/20 [History Last Taken 10/03/21] lisinopril 20 mg tablet 20 mg PO DAILY blood pressure 04/26/20 [History Last Taken 10/03/21] ferrous sulfate 325 mg (65 mg iron) tablet (iron) 325 mg PO DAILY supplement 11/16/20 [History Last Taken 10/03/21] trazodone 50 mg tablet 50 mg PO QHS PRN PRN Sleep 06/28/21 [History Last Taken 10/02/21] hydrocortisone acetate 25 mg rectal suppository (Anusol-HC) [address] BID PRN PRN . 10/03/21 [History Last Taken Unknown] potassium chloride 10 mEq capsule,extended release 10 meq PO DAILY supplement 10/03/21 [History Last Taken 10/03/21] Allergy/AdvReac Type Severity Reaction Status Date / Time codeine Allergy Rash Verified 09/20/21 10:38 Penicillins AdvReac Severe Shortness Verified 09/20/21 10:38 of breath Family History Father Myocardial infarction Mother West Nile encephalitis Sister Myocardial infarction Brother Diabetes Hypertension Surgical History History of colonoscopy Hx of cholecystectomy Social History Smoking Status: Current every day smoker tobacco type: cigarettes alcohol intake: never ROS Constitutional Constitutional: Reports weakness; Denies chills, fatigue, fever(s) or malaise Eyes Eyes: Denies blurry vision ENT HEENT: Denies headache(s) or nasal discharge Cardiovascular Cardiovascular: Denies chest pain, dyspnea on exertion or syncope Respiratory/Chest Respiratory/Chest: Denies cough, shortness of breath at rest or shortness of breath with exertion Gastrointestinal Gastrointestinal: Reports abdominal pain; Denies constipation, diarrhea, nausea or vomiting Genitourinary Genitourinary: Denies dysuria Neurologic Neurologic: Denies focal weakness, numbness or tremor(s) Psychiatric Psychiatric: Denies anxiety or depression Vital Signs Vital Signs Vital Signs: 10/03/21 16:12 10/03/21 16:15 10/03/21 18:30 Temperature 96.9 F L 97.4 F L Temperature Source Temporal Temporal Pulse Rate 91 84 Respiratory Rate 30 H 25 H Respiratory Effort Short of Breath Blood Pressure 87/68 L 108/65 Blood Pressure Mean 74 79 Pulse Ox 98 98 Oxygen Delivery Method Room Air Room Air 10/03/21 16:30 10/03/21 17:00 10/03/21 17:30 Temperature Temperature Source Pulse Rate 87 86 85 Respiratory Rate 16 17 19 H Respiratory Effort Blood Pressure 76/58 L 82/61 L 95/66 Blood Pressure Mean 64 68 75 Pulse Ox 99 99 98 Oxygen Delivery Method Room Air Room Air Room Air 10/03/21 18:00 10/03/21 18:15 10/03/21 19:07 Temperature 97.9 F Temperature Source Temporal Pulse Rate 83 85 80 Respiratory Rate 28 H 20 H 24 H Respiratory Effort Blood Pressure 98/61 101/72 112/68 Blood Pressure Mean 73 81 82 Pulse Ox 98 99 99 Oxygen Delivery Method Room Air Room Air Room Air Weight Weight: 154 lb 1.65 oz Body Mass Index (BMI) 28.1 Physical Exam Narrative General: Alert, Oriented x3, Cooperative, No apparent distress HEENT: Atraumatic, PERRLA, EOMI, Normocephalic Oral: Dry mucosa Neck: Supple, No JVD Lungs: Clear to auscultation, Normal air movement, No rhonchi, No wheeze, No rales Cardiovascular: Regular rate, Regular Rhythm, Normal S1, Normal S2, No murmurs Abdomen: Soft, Non Tender, Non-Distended, No Hepato-splenomegaly Extremities: No edema, Capillary Refill Less than 3 Seconds Skin: No rashes, No breakdown Musculoskeletal: No Tenderness to Palpation of Joints or Extremities Neurological: Cranial nerves II-XII grossly intact, motor and sensory exam intact Psych/Mental Status: Flat affect, Appropriate Results Lab / Micro Data Result Diagrams: 10/03/21 17:00 10/03/21 17:00 Labs: Laboratory Results - last 24 hr 10/03/21 17:00: WBC 11.4 H, RBC 3.65 L, Hgb 8.2 L, Hct 27.8 L, MCV 76.2 L, MCH 22.5 L, MCHC 29.5 L, RDW Std Deviation 55.6 H, RDW Coeff of Ava 20.3 H, Plt Count 613 H, MPV 10.0, Immature Gran % (Auto) 1.100 H, Neut % (Auto) 84.6 H, Lymph % (Auto) 6.8 L, [place] % (Auto) 6.5, Eos % (Auto) 0.9, Baso % (Auto) 0.1, Absolute Neuts (auto) 9.7 H, Absolute Lymphs (auto) 0.77 L, Nucleated RBC % 0, Differential Comment SCANNED 10/03/21 17:00: PT 14.5, INR 1.2 10/03/21 17:00: Sodium 132 L, Potassium 4.1, Chloride 102, Carbon Dioxide 22.0, Anion Gap 8, BUN 60 H, Creatinine 3.21 H, Estim Creat Clear Calc 14.37, Est GFR (MDRD) Af Amer 19 L, Est GFR (MDRD) Non-Af 16 L, BUN/Creatinine Ratio 18.7, Glucose 117 H, Calcium 8.1 L, Total Bilirubin 0.30, AST 249 H, ALT 458 H, Alkaline Phosphatase 139 H, Troponin I High Sens 73 H, Total Protein 6.9, Albumin 1.8 L, Globulin 5.1 H, Albumin/Globulin Ratio 0.4 L 10/03/21 17:00: Lactic Acid 2.9 H* Micro: Microbiology 10/03/21 17:13 Nasal Secretion SARS-CoV-2 Antigen (Rapid) - Final Assessment & Plan Assessment/Plan (1) Weakness: (2) Dehydration: (3) Acute renal failure: PLAN: Plan 1. Weakness secondary to acute renal failure from dehydration/elevated LFTs ? Continue with aggressive fluid resuscitation ? Creatinine is at 3.21 on admission, baseline is 0.94 ? PT/OT evaluation ? Elevated LFTs is likely from her cancer that is metastasized to her liver on previous scans, we will repeat a CMP in the morning and if continues to climb may be beneficial to have an input from gastroenterology ? Had a 45-minute advance care planning discussion about the differences between hospice and palliative care 2. Hypertension ? Blood pressures are little bit soft but are responding to IV fluids ? Given her renal failure we will hold her lisinopril and given her previous hypotension on admission we will hold her metoprolol 3. Anemia ? This is likely multifactorial between previous GI bleeds from her rectal cancer as well as iron deficiency anemia ? We will continue with her iron replacement 4. Anxiety/depression ? Stable ? Continue with citalopram and trazodone DVT: SCDs Charges/Coding Visit Charges Inpatient E&M: 04557 Init Hosp L2 Procedures Hospitalists Procedures: 28179 Advncd Care Plan 30 Min
[2021-10-03 21:10] LABS: Reflex Lactate? Y
[2021-10-03] MEDS: 0.9% Normal Saline 1,000 ML 100 ML IV (21:38)
[2021-10-03] MEDS: 0.9% Saline Lock 10 ML Syringe IV (21:39)
--- NOTE | 2021-10-03 22:00 | NURSING ---
pt niece Jodi Gayle [phone]. niece to pt home TID to care for pt. per niece pt spouse on August 31, 2021.
[2021-10-03 23:10] LABS: Lactic Acid 1.2 mmol/L (0.4-1.9)
[2021-10-04] VITALS (12 sets, daily range): BP systolic 98–157; BP diastolic 71–89; PULSE 89–117; RESP 16–20; TEMP 36.3–36.8; O2SAT 94–97
[2021-10-04] MEDS: 0.9% Normal Saline 1,000 ML 100 ML IV ×2 (05:01→13:31)
[2021-10-04 05:41] LABS: Absolute Lymphocyte Count 0.68 X10^3/uL (0.83-4.51); Basophil# 0.01 X10^3/uL; Basophil% 0.1 % (0-1); Eosinophil# 0.12 X10^3/uL; Eosinophils% 1.3 % (0-5); Hematocrit 25.6 % (37-47); Hemoglobin 7.3 g/dL (12.0-15.0); Lymphocyte # 0.68 X10^3/ul (0.83-4.51); Lymphocyte % 7.1 % (19-41); Mean Corp Hgb Conc 28.5 g/dL (32-36); Mean Corpuscular Hgb 21.8 pg (27.0-32.0); Mean Corpuscular Volume 76.4 fL (81-99); Mean Platelet Vol. 10.2 fl (6.2-12.0); Monocyte# 0.64 X10^3/uL; Monocyte% 6.7 % (0-10); NRBC Flagged by Analyzer 0 % (0-5); Neutrophil # 8.01 X10^3/uL (2.7-7.7); Neutrophil % 83.7 % (47-70); POSITIVE MORPHOLOGY YES; Platelet Count 540 K/mm3 (150-450); RBC Distribution Width CV 20.7 % (11.6-14.6); RBC Distribution Width SD 56.8 fl (35.1-43.9); Red Blood Count 3.35 M/mm3 (4.2-5.4); White Blood Count 9.6 K/mm3 (4.4-11.0)
[2021-10-04 05:48] LABS: Differential Indicated SCAN CRITERIA MET
[2021-10-04 06:06] LABS: Anisocytosis 2+; Microcytosis 3+
[2021-10-04 06:07] LABS: Platelet Estimate MOD INC (ADEQ)
[2021-10-04 06:16] LABS: ALB/GLOB Ratio 0.4 RATIO (0.9-2.4); AST(SGOT) 178 U/L (15-37); Alanine Aminotransfer ALT/SGPT 336 U/L (13-56); Albumin, Serum 1.6 g/dL (3.2-5.0); Alkaline Phosphatase 118 U/L (45-117); Anion Gap 6 (5-15); BUN 50 mg/dL (7-18); BUN/Creat Ratio 25.6 RATIO (10-20); Calcium,Total 8.1 mg/dL (8.5-10.1); Chloride 111 mmol/L (98-107); Creatinine, Serum 1.95 mg/dL (0.55-1.02); EST Glomerular Filtration Rate 28 mL/min (>60); Est Glom Filt Rate - Afr Amer 33 mL/min (>60); Estimated Creatinine Clearance 23.66 ml/min; Globulin 4.5 g/dL (2.2-4.2); Glucose 66 mg/dL (74-106); Protein, Total 6.1 g/dL (6.4-8.2); Sodium Level 137 mmol/L (136-145)
[2021-10-04] MEDS: Potassium Chloride Oral Tablet 10 MEQ PO (09:10)
[2021-10-04] MEDS: Ferrous Sulfate 325 MG Tablet PO (09:10)
[2021-10-04] MEDS: Citalopram 20 MG Tablet PO (09:10)
[2021-10-04 09:39] LABS: Hematocrit 26.1 % (37-47); Hemoglobin 7.6 g/dL (12.0-15.0)
--- NOTE | 2021-10-04 10:14 | PCM.PN.HOSP ---
Documented by User: PEYTON Bustamante 10/04/21 10:26 Subjective Subjective Patient seen and examined. Patient sitting in bed no distress noted. Nursing and lab at bedside, patient requesting all lab draws be drawn from her port. Communication order entered for port to be used for blood draws during hospitalization. Objective Data Objective Data Vital Signs: Vital Signs Temp Pulse Resp BP Pulse Ox O2 Del Method 98.1 F 102 H 18 146/84 H 97 Room Air 10/04/21 08:56 10/04/21 08:56 10/04/21 08:56 10/04/21 08:56 10/04/21 08:56 10/04/21 08:59 Oxygen Delivery Method Room Air Weight: 153 lb 7.068 oz Body Mass Index (BMI) 28.0 Intake & Output: Intake and Output for Last 24 Hours 10/02/21 10/03/21 10/04/21 23:59 23:59 23:59 Intake Total 2049 738.33 / 738.33 Balance 2049 738.33 / 738.33 Lab / Micro Data Result Diagrams: 10/04/21 09:01 10/04/21 04:18 Labs: Laboratory Results - last 24 hr 10/03/21 17:00: WBC 11.4 H, RBC 3.65 L, Hgb 8.2 L, Hct 27.8 L, MCV 76.2 L, MCH 22.5 L, MCHC 29.5 L, RDW Std Deviation 55.6 H, RDW Coeff of Ava 20.3 H, Plt Count 613 H, MPV 10.0, Immature Gran % (Auto) 1.100 H, Neut % (Auto) 84.6 H, Lymph % (Auto) 6.8 L, [place] % (Auto) 6.5, Eos % (Auto) 0.9, Baso % (Auto) 0.1, Absolute Neuts (auto) 9.7 H, Absolute Lymphs (auto) 0.77 L, Nucleated RBC % 0, Differential Comment SCANNED 10/03/21 17:00: PT 14.5, INR 1.2 10/03/21 17:00: Sodium 132 L, Potassium 4.1, Chloride 102, Carbon Dioxide 22.0, Anion Gap 8, BUN 60 H, Creatinine 3.21 H, Estim Creat Clear Calc 14.37, Est GFR (MDRD) Af Amer 19 L, Est GFR (MDRD) Non-Af 16 L, BUN/Creatinine Ratio 18.7, Glucose 117 H, Calcium 8.1 L, Total Bilirubin 0.30, AST 249 H, ALT 458 H, Alkaline Phosphatase 139 H, Troponin I High Sens 73 H, Total Protein 6.9, Albumin 1.8 L, Globulin 5.1 H, Albumin/Globulin Ratio 0.4 L 10/03/21 17:00: Lactic Acid 2.9 H* 10/03/21 22:20: Lactic Acid 1.2 10/04/21 04:18: WBC 9.6, RBC 3.35 L, Hgb 7.3 L, Hct 25.6 L, MCV 76.4 L, MCH 21.8 L, MCHC 28.5 L, RDW Std Deviation 56.8 H, RDW Coeff of Ava 20.7 H, Plt Count 540 H, MPV 10.2, Immature Gran % (Auto) 1.100 H, Neut % (Auto) 83.7 H, Lymph % (Auto) 7.1 L, [place] % (Auto) 6.7, Eos % (Auto) 1.3, Baso % (Auto) 0.1, Absolute Neuts (auto) 8.0 H, Absolute Lymphs (auto) 0.68 L, Nucleated RBC % 0, Platelet Estimate MOD INC, Anisocytosis 2+, Microcytosis 3+ 10/04/21 04:18: Sodium 137, Potassium 4.0, Chloride 111 H, Carbon Dioxide 20.0 L, Anion Gap 6, BUN 50 H, Creatinine 1.95 H, Estim Creat Clear Calc 23.66, Est GFR (MDRD) Af Amer 33 L, Est GFR (MDRD) Non-Af 28 L, BUN/Creatinine Ratio 25.6 H, Glucose 66 L, Calcium 8.1 L, Total Bilirubin 0.30, AST 178 H, ALT 336 H, Alkaline Phosphatase 118 H, Total Protein 6.1 L, Albumin 1.6 L, Globulin 4.5 H, Albumin/Globulin Ratio 0.4 L 10/04/21 09:01: Hgb 7.6 L, Hct 26.1 L Micro: Microbiology 10/03/21 17:13 Nasal Secretion SARS-CoV-2 Antigen (Rapid) - Final Radiography Diagnostic Testing: Radiology Impression Chest X-Ray 10/03/21 17:50 IMPRESSION: Multiple nodular densities seen in both lungs consistent with known pulmonary metastases.. Electronically Signed: Jermaine Sanders MD at 19:55 EDT , Physical Exam Const alert, oriented x3 and no apparent distress HEENT head/scalp atraumatic and moist oral mucous membranes Head and Scalp: normocephalic Eyes conjunctivae normal and no scleral icterus Neck no lymphadenopathy and supple Resp normal respiratory effort and clear to auscultation bilaterally Cardio regular rate, regular rhythm, S1 normal heart sound and S2 normal heart sound GI normal to inspection, nondistended, normoactive bowel sounds, soft to palpation and non-tender Extremity normal to inspection and full ROM Neuro oriented x3, moves all extremities, no focal motor deficits and no sensory deficits noted Sensorium / Orientation: awake and alert Psych affect normal Assessment & Plan Assessment/Plan (1) Acute renal failure: (2) Dehydration: PLAN: Plan 1. Weakness secondary to dehydration/acute renal failure -Continue IV fluid resuscitation -PT and OT following -Creatinine improved from 3.21-1.95 today -CMP daily 2. Elevated LFTs secondary to liver metastases -CMP daily -Improved following fluid resuscitation 3. Rectal cancer with metastases to liver and lung -Patient has been receiving chemotherapy and follows with Dr. 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 Hypertension -Continue lisinopril and metoprolol 5. Depression -Continue citalopram and trazodone DVT prophylaxis-SCDs This patient was seen by NAVEED BustamanteC under the supervision of Dr. De La Torre. 13 minutes spent in clinical coordination of patient's plan of care. Documented by User: Dr. Sonya De La Torre MD 10/04/21 16:13 Objective Data Lab / Micro Data Result Diagrams: 10/04/21 09:01 10/04/21 04:18 Assessment & Plan Assessment/Plan (1) Acute renal failure: (2) Dehydration: Charges/Coding Addendum Addendum: Patient seen by Maddie TODD under my supervision Patient seen and examined. She had no complaints this morning and says she felt well. She felt much better than when she came in. She denied any fever, chills, nausea, vomiting or diarrhea. Review of systems otherwise negative. Creatinine is trending downwards. Review of systems otherwise negative. O/E: Const alert, oriented x3 and no apparent distress General Appearance: cooperative HEENT normocephalic, head/scalp atraumatic, hearing grossly normal bilaterally and moist oral mucous membranes Eyes PERRL, EOMs intact bilaterally and conjunctivae normal Neck no lymphadenopathy, supple and no JVD Resp normal respiratory effort and clear to auscultation bilaterally Cardio regular rate, regular rhythm, S1 normal heart sound, S2 normal heart sound and no murmurs GI normal to inspection, nondistended, normoactive bowel sounds and soft to palpation Extremity normal to inspection, full ROM and no clubbing, cyanosis or edema Skin no rashes or lesions noted Neuro oriented x3, CN's II-XII intact bilaterally and moves all extremities Sensorium / Orientation: awake and alert Psych affect normal Assessment and plan #Debility due to dehydration and WILLY resolving Cr is trending downwards and is 1.95, from 3.21 on admission being gently hydrated with IVF. Will continue PT/OT on board. Fall precautions #Rectal cancer with mets to the liver and lung To follow-up with oncology on outpatient basis. Has not had chemotherapy since June she is not able to tolerate the chemo very well. On Anusol suppositories for radiation-induced proctitis. Follow-up with oncology on outpatient basis. #Hypertension; on lisinopril and metoprolol. Lisinopril on hold o/a of WILLY #Depression: On trazodone and citalopram #Anemia: Likely due to rectal cancer. Hemoglobin was 7.3 this morning and a repeat was 7.6. Baseline hemoglobin from April is around 10 though in August 2021 was 8.5. Will monitor for now. DVT prophylaxis: SCDs Rest as per Maddie Sage ADMINISTRATIVE ASSISTANT FRONT DESK-C under my supervision Total time I spent on care of the patient today 18 minutes with Malena spending 13 minutes making a total of 31 minutes. Visit Charges Inpatient E&M: 61739 Subs Hosp L2
--- NOTE | 2021-10-04 10:45 | CASEMGMT ---
RN LAZARO assessment: Face to Face with patient for initial transition planning/care coordination assessment. RN CM introduced self and role at [facility], pt voices understanding and consents to assessment. Pt is sitting up in bed in no distress on room air. Pt is A/Ox4 and answers all questions appropriately.? Care providers, pharmacy,?and demographics verified/updated. ? Presentation: Pt c/o increased weakness over last few days-supposed to start back up on chemo Admitting dx: Acute renal failure PCP: Marnie Specialists: ava Stokes; shreya Reynoso onc [facility]erred [facility]acy: [facility] Insurance: Pt supposed to have 's [employer] BC/BS as a retiree benefit despite his in August 2021. Pt also thought she has MCR A/B despite early assisted-per registration notes, pt is inactive with MCR and pt aware, states she will call to f/u. Pt states has called BC/BS twice since passed and they state she has coverage. Call to Rossana in [facility] registration and she states BC/BS is showing inactive as of 09/08/21. Rossana states she will have someone call to check on same and will then update this RN CM. CM to follow Prescription Benefit:? [employer] BC/BS, if active Living Will/HPOA: Pt does not have LW/HPOA but states would like to complete AD's. Isaak SALDANA aware. LNOK: Jodi Gayle, niece Living Arrangements: Pt states currently lives alone on main level of 2 story home and niece checks in on her several times daily. Pt states niece/ will likely be moving in with her to assist. Pt states is independent with ADL's. Transportation: Pt drives self or niece drives and states no transportation concerns. DME/HHC: Pt has no current DME or need for any DME. Pt states no hx of HHC or SNF in past. Pt states no concerns with going home at time of discharge. Pt is retired. Pt states smokes 1/2 pack cigarettes daily and does not drink ETOH. Pt states no further concerns/needs. CM to follow for any further discharge planning/needs. Advised pt to ask for CM if any further questions/concerns/needs arise, voices understanding. Pt Goal: Home ? Plan[place]
--- NOTE | 2021-10-04 14:43 | CASEMGMT ---
SW completed Healthcare Power of Naturopathic Oncology Provider papers with patient per her request. Copies were made and given to patient along with original. SW also placed a copy in patient's chart. Aundrea BARNETT
--- NOTE | 2021-10-04 15:20 | CASEMGMT ---
Call back from patient financial and they state they are unable to reach anyone at [facility] regarding pt insurance coverage thru and that pt will have to try and call. This MARA WILLIS made multiple calls to [employer] [facility] of [place] and was finally able to obtain pt's new ID number and this was provided to Rossana in registration at this time. Per rep, this is an indefinite benefit. ID: [id number]. New card that was provided to pt has the old ID number. Rossana ran this number and it is active indefinitely. Per pt's Medicare card, pt's Medicare A/B is active starting 10/10/21. Pt updated on all, voices understanding and gratitude. Chrissy TERRY CM
[2021-10-04 17:59] LABS: Hematocrit 23.9 % (37-47); Hemoglobin 6.8 g/dL (12.0-15.0)
[2021-10-04] MEDS: 0.9% Saline Lock 10 ML Syringe IV (20:16)
[2021-10-05] VITALS (10 sets, daily range): BP systolic 148–178; BP diastolic 74–97; PULSE 94–120; RESP 18–20; TEMP 36.2–36.7; O2SAT 92–96
[2021-10-05] MEDS: 0.9% Normal Saline 1,000 ML 100 ML IV ×2 (00:43→09:21)
[2021-10-05] MEDS: 0.9% Saline Lock 10 ML Syringe IV ×3 (00:43→16:46)
[2021-10-05] MEDS: Metoprolol(XL)Succ 100 MG Tablet PO (02:58)
[2021-10-05 07:25] LABS: Absolute Lymphocyte Count 0.73 X10^3/uL (0.83-4.51); Absolute Neutrophil Count 5.7 X10^3/uL (2.0-7.7); Basophil# 0.02 X10^3/uL; Basophil% 0.3 % (0-1); Eosinophil# 0.11 X10^3/uL; Eosinophils% 1.5 % (0-5); Hematocrit 25.9 % (37-47); Hemoglobin 7.6 g/dL (12.0-15.0); Lymphocyte # 0.73 X10^3/ul (0.83-4.51); Lymphocyte % 9.7 % (19-41); Mean Corp Hgb Conc 29.3 g/dL (32-36); Mean Corpuscular Hgb 22.8 pg (27.0-32.0); Mean Corpuscular Volume 77.5 fL (81-99); Mean Platelet Vol. 10.6 fl (6.2-12.0); Monocyte# 0.79 X10^3/uL; Monocyte% 10.5 % (0-10); NRBC Flagged by Analyzer 0.7 % (0-5); Neutrophil # 5.67 X10^3/uL (2.7-7.7); Neutrophil % 75.3 % (47-70); POSITIVE MORPHOLOGY YES; Platelet Count 490 K/mm3 (150-450); RBC Distribution Width CV 20.9 % (11.6-14.6); RBC Distribution Width SD 57.9 fl (35.1-43.9); Red Blood Count 3.34 M/mm3 (4.2-5.4); White Blood Count 7.5 K/mm3 (4.4-11.0)
[2021-10-05 07:45] LABS: ALB/GLOB Ratio 0.3 RATIO (0.9-2.4); AST(SGOT) 104 U/L (15-37); Alanine Aminotransfer ALT/SGPT 227 U/L (13-56); Albumin, Serum 1.5 g/dL (3.2-5.0); Alkaline Phosphatase 139 U/L (45-117); Anion Gap 4 (5-15); BUN 36 mg/dL (7-18); BUN/Creat Ratio 31.6 RATIO (10-20); Calcium,Total 6.4 mg/dL (8.5-10.1); Chloride 114 mmol/L (98-107); Creatinine, Serum 1.14 mg/dL (0.55-1.02); EST Glomerular Filtration Rate 51 mL/min (>60); Est Glom Filt Rate - Afr Amer 62 mL/min (>60); Estimated Creatinine Clearance 40.47 ml/min; Globulin 4.4 g/dL (2.2-4.2); Glucose 77 mg/dL (74-106); Potassium 5.1 mmol/L (3.5-5.1); Protein, Total 5.9 g/dL (6.4-8.2); Sodium Level 139 mmol/L (136-145)
[2021-10-05] MEDS: Citalopram 20 MG Tablet PO (08:25)
[2021-10-05] MEDS: Potassium Chloride Oral Tablet 10 MEQ PO (08:25)
[2021-10-05] MEDS: Ferrous Sulfate 325 MG Tablet PO ×2 (08:25→16:46)
[2021-10-05] MEDS: hydrALAZINE 20 MG/ML Vial 10 MG IV (08:33)
[2021-10-05 08:42] LABS: Differential Indicated SCAN CRITERIA MET
[2021-10-05 08:43] LABS: Anisocytosis 1+
--- NOTE | 2021-10-05 09:23 | CASEMGMT ---
Addendum entered by Moni Hooks 10/05/21 15:35: Palliative liaison here and pt did sign up with palliative care at this time. Chrissy TERRY CM Original Note: Per Adilia WEB CONTENT SPECIALIST, pt to have palliative c/s for metastatic cancer and pt agreeable. Referral e-mailed to [facility]. Chrissy TERRY CM
[2021-10-05] MEDS: Acetaminophen 325 MG Tablet 650 MG PO (10:01)
[2021-10-05 10:03] LABS: Ferritin 200 ng/mL (8-252); Iron < 5 ug/dL (50-170); Iron Binding Capacity,Total < 8 ug/dL (250-450)
--- NOTE | 2021-10-05 10:08 | PN.HOSP_ITS ---
Documented by User: Maddie Sage NP-C 10/05/21 10:13 Subjective Subjective Patient seen and examined. Patient sitting in bed no distress noted. Palliative consult ordered. Objective Data Objective Data Vital Signs: Vital Signs Temp Pulse Resp BP Pulse Ox O2 Del Method 98.1 F 108 H 18 178/97 H 96 Room Air 10/05/21 08:21 10/05/21 08:33 10/05/21 08:21 10/05/21 08:33 10/05/21 08:21 10/05/21 08:21 Oxygen Delivery Method Room Air Weight: 153 lb 7.068 oz Body Mass Index (BMI) 28.0 Intake & Output: Intake and Output for Last 24 Hours 10/03/21 10/04/21 10/05/21 23:59 23:59 23:59 Intake Total 2049 3668.33 / 3668.33 1383.33 / 1383.33 Output Total 0 / 0 Balance 2049 3668.33 / 3668.33 1383.33 / 1383.33 Medical Nutrition Assessment Dietitian: Malnutrition Criteria Met Start: 10/04/21 15:43 Freq: Status: Active Protocol: Document 10/04/21 15:43 AG (Rec: 10/04/21 15:43 AG [id number]) Nutrition Malnutrition Evidence of Malnutrition Exists Yes Malnutrition (severe): Chronic Evidenced By Suboptimal Energy Intake ( Severe),Weight Loss (Severe) Clinical Problem Chronic Disease or Condition Related Malnutrition Etiology severe, chronic malnutrition related to inadequate energy intake d/t cancer, likely depression after of Signs/Symptoms as evidenced by unintentional wt loss of 26.6#/15% x 3 months; estimated PO intake meeting <75% of estimated energy needs >3 months Status Active Problem Recommendation Dietitian Recommendations/Changes continue regular diet given severe malnutrition; pt declines ensure at this time. Lab / Micro Data Result Diagrams: 10/05/21 05:27 10/05/21 05:27 Labs: Laboratory Results - last 24 hr 10/04/21 17:45: Hgb 6.8 L, Hct 23.9 L 10/04/21 20:10: Blood Type O POSITIVE, Antibody Screen NEGATIVE 10/04/21 20:10: Crossmatch See Detail 10/05/21 05:27: WBC 7.5, RBC 3.34 L, Hgb 7.6 L, Hct 25.9 L, MCV 77.5 L, MCH 22.8 L, MCHC 29.3 L, RDW Std Deviation 57.9 H, RDW Coeff of Ava 20.9 H, Plt Count 490 H, MPV 10.6, Immature Gran % (Auto) 2.700 H, Neut % (Auto) 75.3 H, Lymph % (Auto) 9.7 L, [place] % (Auto) 10.5 H, Eos % (Auto) 1.5, Baso % (Auto) 0.3, Absolute Neuts (auto) 5.7, Absolute Lymphs (auto) 0.73 L, Nucleated RBC % 0.7, Anisocytosis 1+ 10/05/21 05:27: Sodium 139, Potassium 5.1, Chloride 114 H, Carbon Dioxide 21.0, Anion Gap 4 L, BUN 36 H, Creatinine 1.14 H, Estim Creat Clear Calc 40.47, Est GFR (MDRD) Af Amer 62, Est GFR (MDRD) Non-Af 51 L, BUN/Creatinine Ratio 31.6 H, Glucose 77, Calcium 6.4 L*, Total Bilirubin 0.30, AST 104 H, ALT 227 H, Alkaline Phosphatase 139 H, Total Protein 5.9 L, Albumin 1.5 L, Globulin 4.4 H, Albumin/Globulin Ratio 0.3 L 10/05/21 05:27: Iron < 5 L, TIBC < 8 L, Iron Saturation TNP, Ferritin 200 Micro: Microbiology 10/04/21 12:15 Stool Stool Occult Blood ([facility]) - Final Occult Blood Positive 10/03/21 17:13 Nasal Secretion SARS-CoV-2 Antigen (Rapid) - Final Physical Exam Const alert, oriented x3 and no apparent distress HEENT head/scalp atraumatic and moist oral mucous membranes Eyes conjunctivae normal and no scleral icterus Neck no lymphadenopathy and supple Resp normal respiratory effort and clear to auscultation bilaterally Cardio regular rate, regular rhythm, S1 normal heart sound and S2 normal heart sound GI normal to inspection, nondistended, normoactive bowel sounds, soft to palpation and non-tender Extremity normal to inspection and full ROM Neuro oriented x3, moves all extremities, no focal motor deficits and no sensory deficits noted Sensorium / Orientation: awake and alert Psych affect normal Assessment & Plan Assessment/Plan (1) Acute renal failure: (2) Dehydration: PLAN: Plan 1. Weakness secondary to dehydration/acute renal failure -Continue IV fluid resuscitation -PT and OT following -Creatinine improved to 1.14 today -CMP daily 2. Elevated LFTs secondary to liver metastases -CMP daily -Improved following fluid resuscitation 3. Hypocalcemia -Calcium 6.4, calcium gluconate 2 g ordered -CMP ordered daily 4. Rectal cancer with metastases to liver and lung -Patient has been receiving chemotherapy and follows with Dr. Stoeks -Due to weakness and diarrhea patient has not had chemotherapy since June -Plan is for patient to proceed with Stivarga therapy -Continue as needed Anusol suppositories for radiation-induced proctitis -Patient occult stool positive for blood however patient has continued chronic proctitis with occasional bleeding. Patient evaluated by Dr. Shaffer and no intervention planned at this time. -CBC daily, patient received 1 unit packed red blood cells 10/04/2021 her hemoglobin of 6.8, improved to 7.6 5. Hypertension -Continue lisinopril and metoprolol 6. Depression -Continue citalopram and trazodone DVT prophylaxis-SCDs This patient was seen by NAVEED BustamanteC under the supervision of Dr. De La Torre. 14 minutes spent in clinical coordination of patient's plan of care. Documented by User: Dr. Sonya De La Torre MD 10/05/21 15:57 Objective Data Lab / Micro Data Result Diagrams: 10/05/21 05:27 10/05/21 05:27 Assessment & Plan Assessment/Plan (1) Acute renal failure: (2) Dehydration: Charges/Coding Addendum Addendum: Patient seen by Maddie LUCIOC under my supervision Patient seen and examined. SHe had no active complaints today and had an uneventful night. She was transfused one unit of PRBCs yesterday as her Hb dropped to 6.8. This is thought to be due to her radiation proctitis. Calcium is down to 6.4 this morning. O/E: Const alert, oriented x3 and no apparent distress General Appearance: cooperative HEENT normocephalic, head/scalp atraumatic, hearing grossly normal bilaterally and moist oral mucous membranes Eyes PERRL, EOMs intact bilaterally and conjunctivae normal Neck no lymphadenopathy, supple and no JVD Resp normal respiratory effort and clear to auscultation bilaterally Cardio regular rate, regular rhythm, S1 normal heart sound, S2 normal heart sound and no murmurs GI normal to inspection, nondistended, normoactive bowel sounds and soft to palpation Extremity normal to inspection, full ROM and no clubbing, cyanosis or edema Skin no rashes or lesions noted Neuro oriented x3, CN's II-XII intact bilaterally and moves all extremities Sensorium / Orientation: awake and alert Psych affect normal Assessment and plan #Debility due to dehydration and WILLY * resolving * Cr is down to 1.14. * will dc IVF * PT/OT on board. Fall precautions #Rectal cancer with mets to the liver and lung * To follow-up with oncology on outpatient basis.? Has not had chemotherapy since June she is not able to tolerate the chemo very well. * On Anusol suppositories for radiation-induced proctitis. * Follow-up with oncology on outpatient basis. * #Acute on chronic iron deficiency anemia * due to rectal cancer with radiation proctitis * has been treated for radiation proctitis several times previously by Dr Frederick * GI consulted; plan is for conservative management for now * transfused with one unit of PRBC overnight * on oral iron supplements; will increase frequency to tid * #Hypocalcemia: ca is 6.4 today. Will replace and trend #Hypertension; on lisinopril and metoprolol. Lisinopril on hold o/a of WILLY #Depression: On trazodone and citalopram DVT prophylaxis: SCDs Rest as per Maddie Sage VP [employer]-C under my supervision Total time I spent on care of the patient today 20 minutes with Maddie Sage spending 14 minutes making a total of 34 minutes. Visit Charges Inpatient E&M: 51244 Subs Hosp L2
[2021-10-05 15:55] LABS: Calcium,Total 8.2 mg/dL (8.5-10.1)
--- NOTE | 2021-10-05 16:01 | PCM.DC ---
Discharge Instructions Diet Discharge Diet: Low fat / Low cholesterol Activity Discharge Activity: Return to Normal Activity Dressing / Incision Call your doctor if you observe: Inability to have a bowel movement, Dizziness and Swelling in the ankles Follow Up Care Test Results: Test results from this visit will be discussed in further detail at your follow-up appointment, if applicable. Discharge Plan Admission Admit Date/Time: 10/03/21 18:59 Primary Reason for Your Visit: WILLY, Attending Provider: Sonya De La Torre Primary Care Provider: Brett Dye Consulting Providers: Kaiser Gama ; Luis Fernando Quintero ; Stacia Diaz ; Omid Gaviria ; Lesley Duggan ; Yuliya Parr ; Jacy Bejarano [employer]ING [employer] ENG[employer]ER Discharge Orders/Prescriptions Prescriptions: New ferrous sulfate [FeroSul] 325 mg (65 mg iron) Tablet 325 mg PO TID 30 Days Qty: 90 0RF calcium carbonate [Antacid (calcium carbonate)] 200 mg calcium (500 mg) tablet,chewable 200 mg PO TID PRN (Reason: dyspepsia) Qty: 60 0RF Continued trazodone 50 mg tablet 50 mg PO QHS PRN PRN (Reason: Sleep) metoprolol succinate 100 MG tablet extended release 24 hr 100 mg PO DAILY Label Comments: citalopram 20 MG tablet 20 mg PO DAILY ondansetron 8 MG tablet,disintegrating 8 mg PO Q8H PRN PRN (Reason: Nausea) 10 Days Qty: 30 3RF acetaminophen 500 MG tablet 500 mg PO PRN PRN (Reason: Pain 1-10 Or Fever) lisinopril 20 MG tablet 20 mg PO DAILY potassium chloride 10 mEq capsule, extended release 10 meq PO DAILY Label Comments: TAKE 1 CAPSULE BY MOUTH ONCE DAILY WITH FOOD hydrocortisone acetate [Anusol-HC] 25 mg suppository 25 mg NC BID PRN PRN (Reason: .) Discontinued ferrous sulfate [iron] 325 mg (65 mg iron) tablet 325 mg PO DAILY Referrals / Follow Up: Brett Dye DO [Primary Care Provider] - Within 2 Weeks Disposition Disposition (needs filled in before D/C Order can be placed): Home, Self Care
--- NOTE | 2021-10-05 16:06 | PCM.DC.SUM ---
Documented by User: PEYTON Bustamante 10/05/21 16:10 Providers Date of Admission: 10/03/21 Date of Discharge: 10/05/21 Primary Care Physician: Dr. Brett Dye, Consultations 10/05/21 07:07 Consult: Hospice / Palliative Care Routine Consulting Provider: [facility] Reason for Consult: metastatic cancer EMERGENT Consult: No MD Notified: Yes Date Notified: 10/05/21 Time Notified: 10:02 Method of Notification: sent per case management Comments:: Palliative c/s 10/05/21 08:39 Consult: Gastroenterology Routine Consulting Provider: [facility] Reason for Consult: rectal bleed EMERGENT Consult: No MD Notified: Yes Date Notified: 10/05/21 Time Notified: 08:40 Method of Notification: Verbal Reason For Visit: ACUTE RENAL FAILURE Diagnosis Discharge Diagnosis (1) Acute renal failure: Status: Acute Code(s): N17.9 - Acute kidney failure, unspecified (2) Dehydration: Status: Acute Code(s): E86.0 - Dehydration Plan 1. Weakness secondary to dehydration/acute renal failure -Continue IV fluid resuscitation -PT and OT following -Creatinine improved to 1.14 today -CMP daily 2. Elevated LFTs secondary to liver metastases -CMP daily -Improved following fluid resuscitation 3. Hypocalcemia -Calcium 6.4, calcium gluconate 2 g ordered -CMP ordered daily 4. Rectal cancer with metastases to liver and lung -Patient has been receiving chemotherapy and follows with Dr. Stokes -Due to weakness and diarrhea patient has not had chemotherapy since June -Plan is for patient to proceed with Stivarga therapy -Continue as needed Anusol suppositories for radiation-induced proctitis -Patient occult stool positive for blood however patient has continued chronic proctitis with occasional bleeding. Patient evaluated by Dr. Shaffer and no intervention planned at this time. -CBC daily, patient received 1 unit packed red blood cells 10/04/2021 her hemoglobin of 6.8, improved to 7.6 5. Hypertension -Continue lisinopril and metoprolol 6. Depression -Continue citalopram and trazodone DVT prophylaxis-SCDs This patient was seen by NAVEED BustamanteC under the supervision of Dr. De La Torre. 14 minutes spent in clinical coordination of patient's plan of care. Medications at Discharge Home Medications citalopram 20 mg tablet 20 mg PO DAILY mental health 07/29/13 metoprolol succinate 100 mg tablet,extended release 24 hr 100 mg PO DAILY blood pressure 07/29/13 ondansetron 8 mg disintegrating tablet 8 mg PO Q8H PRN PRN Nausea 10 days ##30 05/05/19 acetaminophen 500 mg tablet 500 mg PO PRN PRN Pain 1-10 Or Fever 01/13/20 lisinopril 20 mg tablet 20 mg PO DAILY blood pressure 04/26/20 trazodone 50 mg tablet 50 mg PO QHS PRN PRN Sleep 06/28/21 hydrocortisone acetate 25 mg rectal suppository (Anusol-HC) 25 mg DC BID PRN PRN Hemorrhoids 10/03/21 potassium chloride 10 mEq capsule,extended release 10 meq PO DAILY supplement 10/03/21 calcium carbonate 200 mg calcium (500 mg) chewable tablet (Antacid (calcium carbonate)) 200 mg PO TID PRN dyspepsia #60 tabs 10/05/21 ferrous sulfate 325 mg (65 mg iron) tablet (FeroSul) 325 mg PO TID 30 days #90 tabs 10/05/21 Hospital Course Operations None Procedures Blood transfusion Summary of Care Provided Minutes Spent on Discharge: 25 Hospital Course: Patient is a 61-year-old female who initially presented to the ER with weakness and general fatigue. Patient has a history of rectal cancer with metastases to her lungs and liver. Patient was getting chemotherapy but this was stopped in June due to her weakness and general decompensation. Patient also reported that she did not have very much of an appetite and has not been eating or drinking appropriately. Patient was admitted and given generous IV fluid resuscitation which improved BUN and creatinine over 3 days. Patient was also noted to have elevated LFTs which is likely due to not only her liver metastases but her dehydration. LFTs have improved with fluid resuscitation as well. Patient has chronic anemia and had been on iron replacement daily. Patient was noted to have some blood in her stool and has a history of radiation-induced proctitis and this has been an ongoing issue for patient. Occult stool was positive and H&H was rechecked on the evening of 726 patient was noted to have a hemoglobin of 6.8 and was subsequently given 1 unit packed red blood cell infusion. Patient was evaluated by Dr. Shaffer for proctitis and bleeding who saw the patient and determined that no intervention needed to be done at this time. Patient follows with Dr. Frederick outpatient who scoped the patient in May 2021 which showed inflammation consistent with proctitis. Patient encouraged to continue as needed Anusol suppositories and increase iron to 3 times daily. Patient will also be discharged home on Tums for calcium supplementation as patient was noted to be hypocalcemic and received IV calcium replacement while admitted. Patient will need to follow-up with her primary care physician and her specialist including oncology and GI. Physical Exam Const alert, oriented x3 and no apparent distress HEENT head/scalp atraumatic and moist oral mucous membranes Eyes conjunctivae normal and no scleral icterus Neck no lymphadenopathy and supple Resp normal respiratory effort and clear to auscultation bilaterally Cardio regular rate, regular rhythm, S1 normal heart sound and S2 normal heart sound GI normal to inspection, nondistended, normoactive bowel sounds, soft to palpation and non-tender Extremity normal to inspection and full ROM Neuro oriented x3, moves all extremities, no focal motor deficits and no sensory deficits noted Sensorium / Orientation: awake and alert Psych affect normal Medical Records Data Medical Nutrition Assessment Dietitian: Malnutrition Criteria Met Start: 10/04/21 15:43 Freq: Status: Active Protocol: Document 10/04/21 15:43 AG (Rec: 10/04/21 15:43 AG [id number]) Nutrition Malnutrition Evidence of Malnutrition Exists Yes Malnutrition (severe): Chronic Evidenced By Suboptimal Energy Intake ( Severe),Weight Loss (Severe) Clinical Problem Chronic Disease or Condition Related Malnutrition Etiology severe, chronic malnutrition related to inadequate energy intake d/t cancer, likely depression after of Signs/Symptoms as evidenced by unintentional wt loss of 26.6#/15% x 3 months; estimated PO intake meeting <75% of estimated energy needs >3 months Status Active Problem Recommendation Dietitian Recommendations/Changes continue regular diet given severe malnutrition; pt declines ensure at this time. Weight / BMI Weight Weight: 153 lb 7.068 oz Body Mass Index (BMI) 28.0 ABG / Lab / Microbiology Data Result Diagrams: 10/05/21 05:27 10/05/21 05:27 Laboratory: Laboratory Results - last 24 hr 10/04/21 17:45: Hgb 6.8 L, Hct 23.9 L 10/04/21 20:10: Blood Type O POSITIVE, Antibody Screen NEGATIVE 10/04/21 20:10: Crossmatch See Detail 10/05/21 05:27: WBC 7.5, RBC 3.34 L, Hgb 7.6 L, Hct 25.9 L, MCV 77.5 L, MCH 22.8 L, MCHC 29.3 L, RDW Std Deviation 57.9 H, RDW Coeff of Ava 20.9 H, Plt Count 490 H, MPV 10.6, Immature Gran % (Auto) 2.700 H, Neut % (Auto) 75.3 H, Lymph % (Auto) 9.7 L, [place] % (Auto) 10.5 H, Eos % (Auto) 1.5, Baso % (Auto) 0.3, Absolute Neuts (auto) 5.7, Absolute Lymphs (auto) 0.73 L, Nucleated RBC % 0.7, Anisocytosis 1+ 10/05/21 05:27: Sodium 139, Potassium 5.1, Chloride 114 H, Carbon Dioxide 21.0, Anion Gap 4 L, BUN 36 H, Creatinine 1.14 H, Estim Creat Clear Calc 40.47, Est GFR (MDRD) Af Amer 62, Est GFR (MDRD) Non-Af 51 L, BUN/Creatinine Ratio 31.6 H, Glucose 77, Calcium 6.4 L*, Total Bilirubin 0.30, AST 104 H, ALT 227 H, Alkaline Phosphatase 139 H, Total Protein 5.9 L, Albumin 1.5 L, Globulin 4.4 H, Albumin/Globulin Ratio 0.3 L 10/05/21 05:27: Iron < 5 L, TIBC < 8 L, Iron Saturation TNP, Ferritin 200 10/05/21 15:18: Calcium 8.2 L Microbiology: Microbiology 10/04/21 12:15 Stool C. difficile DNA Amplification - Final 10/04/21 12:15 Stool Stool Occult Blood ([place]) - Final Occult Blood Positive 10/03/21 17:13 Nasal Secretion SARS-CoV-2 Antigen (Rapid) - Final D/C Instructions Discharge Diet: Low fat / Low cholesterol Call your doctor if you observe: Inability to have a bowel movement, Dizziness and Swelling in the ankles Meaningful Use Info Meaningful Use Diagnoses (Choose all that apply): None applicable Discharge Plan Admission Admit Date/Time: 10/03/21 18:59 Primary Reason for Your Visit: WILLY, Attending Provider: Sonya De La Torre Primary Care Provider: Brett Dye Consulting Providers: Kaiser Gama ; Luis Fernando Quintero ; Stacia Diaz ; Omid Gaviria ; Lesley Duggan ; Yuliya Parr ; Jacy Bejarano [employer] Discharge Orders/Prescriptions Prescriptions: New ferrous sulfate [FeroSul] 325 mg (65 mg iron) Tablet 325 mg PO TID 30 Days Qty: 90 0RF calcium carbonate [Antacid (calcium carbonate)] 200 mg calcium (500 mg) tablet,chewable 200 mg PO TID PRN (Reason: dyspepsia) Qty: 60 0RF Continued trazodone 50 mg tablet 50 mg PO QHS PRN PRN (Reason: Sleep) metoprolol succinate 100 MG tablet extended release 24 hr 100 mg PO DAILY Label Comments: citalopram 20 MG tablet 20 mg PO DAILY ondansetron 8 MG tablet,disintegrating 8 mg PO Q8H PRN PRN (Reason: Nausea) 10 Days Qty: 30 3RF acetaminophen 500 MG tablet 500 mg PO PRN PRN (Reason: Pain 1-10 Or Fever) lisinopril 20 MG tablet 20 mg PO DAILY potassium chloride 10 mEq capsule, extended release 10 meq PO DAILY Label Comments: TAKE 1 CAPSULE BY MOUTH ONCE DAILY WITH FOOD hydrocortisone acetate [Anusol-HC] 25 mg suppository 25 mg DC BID PRN PRN (Reason: Hemorrhoids) Discontinued ferrous sulfate [iron] 325 mg (65 mg iron) tablet 325 mg PO DAILY Referrals / Follow Up: Brett Dye DO [Primary Care Provider] - Within 2 Weeks Disposition Disposition (needs filled in before D/C Order can be placed): Home, Self Care Documented by User: Dr. Sonya De La Torre MD 10/06/21 15:54 Providers Date of Admission: 10/03/21 Reason For Visit: ACUTE RENAL FAILURE Diagnosis Discharge Diagnosis (1) Acute renal failure: Status: Acute Code(s): N17.9 - Acute kidney failure, unspecified (2) Dehydration: Status: Acute Code(s): E86.0 - Dehydration Medications at Discharge Home Medications citalopram 20 mg tablet 20 mg PO DAILY mental health 07/29/13 metoprolol succinate 100 mg tablet,extended release 24 hr 100 mg PO DAILY blood pressure 07/29/13 ondansetron 8 mg disintegrating tablet 8 mg PO Q8H PRN PRN Nausea 10 days ##30 05/05/19 acetaminophen 500 mg tablet 500 mg PO PRN PRN Pain 1-10 Or Fever 01/13/20 lisinopril 20 mg tablet 20 mg PO DAILY blood pressure 04/26/20 trazodone 50 mg tablet 50 mg PO QHS PRN PRN Sleep 06/28/21 hydrocortisone acetate 25 mg rectal suppository (Anusol-HC) 25 mg DC BID PRN PRN Hemorrhoids 10/03/21 potassium chloride 10 mEq capsule,extended release 10 meq PO DAILY supplement 10/03/21 calcium carbonate 200 mg calcium (500 mg) chewable tablet (Antacid (calcium carbonate)) 200 mg PO TID PRN dyspepsia #60 tabs 10/05/21 ferrous sulfate 325 mg (65 mg iron) tablet (FeroSul) 325 mg PO TID 30 days #90 tabs 10/05/21 ABG / Lab / Microbiology Data Result Diagrams: 10/05/21 05:27 10/05/21 05:27 Discharge Plan Admission Admit Date/Time: 10/03/21 18:59 Primary Reason for Your Visit: WILLY, Attending Provider: Sonya De La Torre Primary Care Provider: Brett Dye Consulting Providers: Kaiser Gama ; Luis Fernando Quintero ; Stacia Diaz ; Omid Gaviria ; Lesley Duggan ; Yuliya Parr ; Jacy Bejarano NP Discharge Orders/Prescriptions Prescriptions: New ferrous sulfate [FeroSul] 325 mg (65 mg iron) Tablet 325 mg PO TID 30 Days Qty: 90 0RF calcium carbonate [Antacid (calcium carbonate)] 200 mg calcium (500 mg) tablet,chewable 200 mg PO TID PRN (Reason: dyspepsia) Qty: 60 0RF Continued trazodone 50 mg tablet 50 mg PO QHS PRN PRN (Reason: Sleep) metoprolol succinate 100 MG tablet extended release 24 hr 100 mg PO DAILY Label Comments: citalopram 20 MG tablet 20 mg PO DAILY ondansetron 8 MG tablet,disintegrating 8 mg PO Q8H PRN PRN (Reason: Nausea) 10 Days Qty: 30 3RF acetaminophen 500 MG tablet 500 mg PO PRN PRN (Reason: Pain 1-10 Or Fever) lisinopril 20 MG tablet 20 mg PO DAILY potassium chloride 10 mEq capsule, extended release 10 meq PO DAILY Label Comments: TAKE 1 CAPSULE BY MOUTH ONCE DAILY WITH FOOD hydrocortisone acetate [Anusol-HC] 25 mg suppository 25 mg DC BID PRN PRN (Reason: Hemorrhoids) Discontinued ferrous sulfate [iron] 325 mg (65 mg iron) tablet 325 mg PO DAILY Referrals / Follow Up: Brett Dye DO [Primary Care Provider] - Within 2 Weeks Disposition Disposition (needs filled in before D/C Order can be placed): Home, Self Care Charges/Coding Addendum Addendum: Patient seen by Maddie TODD under my supervision Patient is a 61 female with a PMH as outlined who was admitted via the ED on 10/03/2021 with a complaint of weakness. Patient had a history of metastatic rectal cancer and had been undergoing chemotherapy but had been too weak to continue. Her PCP did labs and she was found to have impaired renal function so she was sent into the ED. She admitted to not eating and drinking well. She denied any fever, chills, nausea, vomiting or diarrhea. She was admitted and managed for WILLY likely due to decreased intake. She was hydrated with IV fluids. Her creatinine normalized. Hospital course was complicated by acute on chronic anemia with hemoglobin dropping to a leonard of 6.8. She was transfused with a unit of blood. Anemia was thought to be likely due to her rectal cancer and radiation proctitis. Gastroenterology was consulted but advocated conservative management. Hospital course was also complicated by hypocalemia which resolved with treatment. Patient remained stable and was discharged home on 10/06/2021. Patient was seen and examined prior to discharge. She had no active complaints and had an uneventful night. Review of systems otherwise negative. Labs and vitals reviewed. Medication reviewed and reconciled. O/E: Const alert, oriented x3 and no apparent distress General Appearance: cooperative HEENT normocephalic, head/scalp atraumatic, hearing grossly normal bilaterally and moist oral mucous membranes Eyes PERRL, EOMs intact bilaterally and conjunctivae normal Neck no lymphadenopathy, supple and no JVD Resp normal respiratory effort and clear to auscultation bilaterally Cardio regular rate, regular rhythm, S1 normal heart sound, S2 normal heart sound and no murmurs GI normal to inspection, nondistended, normoactive bowel sounds and soft to palpation Extremity normal to inspection, full ROM and no clubbing, cyanosis or edema Skin no rashes or lesions noted Neuro oriented x3, CN's II-XII intact bilaterally and moves all extremities Sensorium / Orientation: awake and alert Psych affect normal Plan is for discharge home today. Rest as per Maddie Sage [employer]-C's note, which I have reviewed and endorsed. Total time I spent on the discharge of the patient was 22 minutes with Maddie Sage spending 14 minutes making a total of 36 minutes. Visit Charges Inpatient E&M: 13899 Disch Hosp
--- NOTE | 2021-10-05 18:01 | PCM.CONS.GEN ---
Assessment & Plan Assessment/Plan (1) Lower GI bleeding: PLAN: likely she is having lower GI bleeding from previous radiation-induced proctitis from her rectal cancer. Her hemoglobin seems to be stable after transfusion of 3 units of packed red blood cells. At this time she does not want to have any endoscopic evaluation she follows up with her Vacuum Repairer who sees her every 3 months. She appears to be stable enough to discharge with close follow-up. HPI Consult Data Date of Consult: 10/05/21 HPI Narrative Reason for Consultation: lower GI bleeding HPI Narrative: AMINATA NEWSOME, is a 61 F who presents with weakness. She follows with Dr. Stokes for colon/anal cancer. She had prior chemo and radiation. She had an appointment this AM but was too weak to go. She is pale, has shortness of breath with exertion. Denies fevers.? She was found to have a renal function of over 3, her baseline is less than 1.? She states that she has not been having any diarrhea or emesis however she also states that she has not been eating or drinking very well and that she just does not have much of an appetite.? She has been having some abdominal cramping which is chronic for her.? She has stage IV metastatic anal/rectal cancer.? The cancer is spread to both her liver and her lungs.? The chemotherapy has led to reduction in size of the liver metastasis but her lung metastases have grown. I was asked to see her due to to some worsening lower GI bleeding and drop in hemoglobin of 3 g. COUNT INCLUDES THE [facility] Medical History (Updated 10/05/21 @ 18:[address] Stoner Friend, DO) Depression Essential hypertension Hyperlipidemia Iron deficiency anemia RONDA on CPAP Rectal bleeding Rectal cancer Skin cancer Tachycardia Vertigo Home Medications citalopram 20 mg tablet 20 mg PO DAILY mental health 07/29/13 [History Last Taken 10/03/21] metoprolol succinate 100 mg tablet,extended release 24 hr 100 mg PO DAILY blood pressure 07/29/13 [History Last Taken 10/03/21] ondansetron 8 mg disintegrating tablet 8 mg PO Q8H PRN PRN Nausea 10 days ##30 05/05/19 [Rx Last Taken Unknown] acetaminophen 500 mg tablet 500 mg PO PRN PRN Pain 1-10 Or Fever 01/13/20 [History Last Taken 10/03/21] lisinopril 20 mg tablet 20 mg PO DAILY blood pressure 04/26/20 [History Last Taken 10/03/21] trazodone 50 mg tablet 50 mg PO QHS PRN PRN Sleep 06/28/21 [History Last Taken 10/02/21] hydrocortisone acetate 25 mg rectal suppository (Anusol-HC) 25 mg LA BID PRN PRN Hemorrhoids 10/03/21 [History Last Taken Unknown] potassium chloride 10 mEq capsule,extended release 10 meq PO DAILY supplement 10/03/21 [History Last Taken 10/03/21] calcium carbonate 200 mg calcium (500 mg) chewable tablet (Antacid (calcium carbonate)) 200 mg PO TID PRN dyspepsia #60 tabs 10/05/21 [Rx Last Taken Unknown] ferrous sulfate 325 mg (65 mg iron) tablet (FeroSul) 325 mg PO TID 30 days #90 tabs 10/05/21 [Rx Last Taken Unknown] Allergy/AdvReac Type Severity Reaction Status Date / Time codeine Allergy Rash Verified 09/20/21 10:38 Penicillins AdvReac Severe Shortness Verified 09/20/21 10:38 of breath Family History Father Myocardial infarction Mother [place] encephalitis Sister Myocardial infarction Brother Diabetes Hypertension Surgical History History of colonoscopy Hx of cholecystectomy Social History Smoking Status: Current every day smoker tobacco type: cigarettes alcohol intake: never ROS Constitutional Constitutional: Reports weakness; Denies chills, fatigue, fever(s) or malaise Eyes Eyes: Denies blurry vision ENT HEENT: Denies headache(s) or nasal discharge Cardiovascular Cardiovascular: Denies chest pain, dyspnea on exertion or syncope Respiratory/Chest Respiratory/Chest: Denies cough, shortness of breath at rest or shortness of breath with exertion Gastrointestinal Gastrointestinal: Reports abdominal pain; Denies constipation, diarrhea, nausea or vomiting Genitourinary Genitourinary: Denies dysuria Neurologic Neurologic: Denies focal weakness, numbness or tremor(s) Psychiatric Psychiatric: Denies anxiety or depression Physical Exam Const alert, oriented x3 and no apparent distress HEENT head/scalp atraumatic and moist oral mucous membranes Eyes conjunctivae normal and no scleral icterus Neck no lymphadenopathy and supple Resp normal respiratory effort and clear to auscultation bilaterally Cardio regular rate, regular rhythm, S1 normal heart sound and S2 normal heart sound GI normal to inspection, nondistended, normoactive bowel sounds, soft to palpation and non-tender Extremity normal to inspection and full ROM Neuro oriented x3, moves all extremities, no focal motor deficits and no sensory deficits noted Sensorium / Orientation: awake and alert Psych affect normal Lab / Micro Data Result Diagrams: 10/05/21 05:27 10/05/21 05:27 Labs: Laboratory Results - last 24 hr 10/04/21 20:10: Blood Type O POSITIVE, Antibody Screen NEGATIVE 10/04/21 20:10: Crossmatch See Detail 10/05/21 05:27: WBC 7.5, RBC 3.34 L, Hgb 7.6 L, Hct 25.9 L, MCV 77.5 L, MCH 22.8 L, MCHC 29.3 L, RDW Std Deviation 57.9 H, RDW Coeff of Ava 20.9 H, Plt Count 490 H, MPV 10.6, Immature Gran % (Auto) 2.700 H, Neut % (Auto) 75.3 H, Lymph % (Auto) 9.7 L, [place] % (Auto) 10.5 H, Eos % (Auto) 1.5, Baso % (Auto) 0.3, Absolute Neuts (auto) 5.7, Absolute Lymphs (auto) 0.73 L, Nucleated RBC % 0.7, Anisocytosis 1+ 10/05/21 05:27: Sodium 139, Potassium 5.1, Chloride 114 H, Carbon Dioxide 21.0, Anion Gap 4 L, BUN 36 H, Creatinine 1.14 H, Estim Creat Clear Calc 40.47, Est GFR (MDRD) Af Amer 62, Est GFR (MDRD) Non-Af 51 L, BUN/Creatinine Ratio 31.6 H, Glucose 77, Calcium 6.4 L*, Total Bilirubin 0.30, AST 104 H, ALT 227 H, Alkaline Phosphatase 139 H, Total Protein 5.9 L, Albumin 1.5 L, Globulin 4.4 H, Albumin/Globulin Ratio 0.3 L 10/05/21 05:27: Iron < 5 L, TIBC < 8 L, Iron Saturation TNP, Ferritin 200 10/05/21 15:18: Calcium 8.2 L Micro: Microbiology 10/04/21 12:15 Stool C. difficile DNA Amplification - Final Charges/Coding Visit Charges Inpatient E&M: 58563 Init Hosp L2
== END 2021-10-05 17:20 | disposition home or self-care (01) | DRG 640 ==
LOC: ED 19:08 → PCU 10-04 06:41
PROVIDERS: Nurse Practitioner Family; Admitting Provider Family Medicine; Emergency Provider Emergency Medicine; PCP Preventive Medicine Occupational Medicine; Visit Provider Student in an Organized Health Care Education/Training Program
DX: E86.0 Dehydration (principal); E43 Unspecified severe protein-calorie malnutrition; N17.9 Acute kidney failure, unspecified; C20 Malignant neoplasm of rectum; C78.00 Secondary malignant neoplasm of unspecified lung; C78.7 Secondary malignant neoplasm of liver and intrahepatic bile duct; E83.51 Hypocalcemia; D50.9 Iron deficiency anemia, unspecified; D63.0 Anemia in neoplastic disease; I10 Essential (primary) hypertension; E78.5 Hyperlipidemia, unspecified; K62.7 Radiation proctitis; F17.210 Nicotine dependence, cigarettes, uncomplicated; G47.33 Obstructive sleep apnea (adult) (pediatric); F41.9 Anxiety disorder, unspecified; Z92.21 Personal history of antineoplastic chemotherapy; F32.A Depression, unspecified; Z68.28 Body mass index [BMI] 28.0-28.9, adult; Z79.899 Other long term (current) drug therapy
CPT/HCPCS: 36415; 36591; 71045; 80053; 82274; 82310; 82728; 83540; 83550; 83605; 84484; 85014; 85018; 85025; 85610; 86850; 86900; 86901; 86920; 86922; 87040; 87493; 87811; 93005; 97110; 97116; 97162; 97166; 97535; 99285; 99406; J7030; J7040; P9016; A4216; J0610